=== PATIENT | female | born 1960 | race Caucasian/White ===

== ENCOUNTER 2017-07-16 21:04 | Emergency (ER) | payer MEDICARE, OTHER ==
[~2017-07-16] VITALS: Ht 167.6 cm; Wt 108.9 kg
[~2017-07-16 21:04] MED LIST: ACET325 PO; ALBU90OI6 INH; ALBU90OI61 INH; AMLO5 PO; ASPI325; ASPI325 PO; ASPI325EC PO; ASPI81EC; ASPI81EC PO; ATOR10; ATOR80 PO; Amlodipine Besyl5 MG PO; BP MEDICATION; BUME1 PO; Bactrim Ds Tab1 EACH PO; CHOL10002 PO; CITA20 PO; CLOP75; CLOP75 PO; DIPASPER; DIPH50 PO; DULO30; DULO60; Diflucan100 MG PO; FAMO20 PO; FISH1000 PO; FLUSAL115; FLUT110OIA IH; FLUT44OIA IH; FURO40 PO; HYDACE10B PO; HYDCHLSU PO; HYDHCL25 PO; HYDMOR2 PO; IBUP600 PO; IMDUR PO; ISOMON60ER PO; K-Dur20 MEQ PO; LEVO750 PO; LISI5 PO; METF500 PO; NEBI5 PO; NITR.3TP TOP; NITR.4SL SL; NITR.6SL SL; NYST100000 PO; Norco 10-325 T1 EACH PO; Norco 7.5-3251 EACH PO; OLME20; OMEG1CAP30 PO; ONDA4ODT MM; OXYB5 PO; PANT40 PO; PANTOPRAZOLE; PARO20 PO; PAROXETINE; POTA10T PO; POTCHL10ER PO; PRAM.125 PO; PRAM.5 PO; PRAV20 PO; PREG75 PO; PROP60 PO; RAMI2.5 PO; RANI150 PO; ROSU10TA; RXHYDMOR2 PO; TRAM50 PO; TRIAMCINOLONE; VARE1 PO; WARF1 PO; WARF4 PO; WARF6; WARF6 PO; WARF7.5 PO; WARFARIN; [UNRECOGNIZED DRUG - REMARK]
[2018-05-23] MEDS ORDERED: Ultram50 MG PO (12:45)
== END 2017-07-16 23:03 | disposition home or self-care (01) ==
LOC: ER 21:04
DX: S61.431A Puncture wound without foreign body of right hand, initial encounter (principal); Z23 Encounter for immunization; E11.9 Type 2 diabetes mellitus without complications; I10 Essential (primary) hypertension; Z88.8 Allergy status to other drugs, medicaments and biological substances; Z79.899 Other long term (current) drug therapy; Z79.84 Long term (current) use of oral hypoglycemic drugs; Z79.82 Long term (current) use of aspirin; Z95.5 Presence of coronary angioplasty implant and graft; Z87.891 Personal history of nicotine dependence; Z86.73 Personal history of transient ischemic attack (TIA), and cerebral infarction without residual deficits; W26.8XXA Contact with other sharp object(s), not elsewhere classified, initial encounter
CPT/HCPCS: 73130; 90471; 90714; 99283

== ENCOUNTER → 2018-02-14 | Outpatient (CLI) | payer MEDICARE, OTHER | END | disposition home or self-care (01) | LOC: LAB SHORT 13:28 → LAB 13:28 | DX: B35.1 Tinea unguium (principal); L60.2 Onychogryphosis | CPT/HCPCS: 88305; 88312 ==

== ENCOUNTER → 2018-10-29 | Outpatient (CLI) | payer MEDICARE, OTHER ==
[~2018-10-29] MED LIST changes: +Ultram50 MG PO
[2018-10-29 12:16] LABS: BASOPHILS ABSOLUTE AUTO 0.06 K/mm3 (0.00-0.23); BASOPHILS PERCENT AUTO 1 % (0-2); EOSINOPHILS PERCENT AUTO 2 % (0-6); Hematocrit 39.8 % (33.0-51.0); Hemoglobin 12.9 g/dL (11.5-16.0); IMMATURE GRAN ABSOLUTE AUTO 0.03 K/mm3 (0.00-0.10); IMMATURE GRAN PERCENT AUTO 1 % (0-1); LYMPHOCYTES ABSOLUTE AUTO 1.65 K/mm3 (0.84-5.20); LYMPHOCYTES PERCENT AUTO 25 % (21-46); MONOCYTES ABSOLUTE AUTO 0.28 K/mm3 (0.16-1.47); MONOCYTES PERCENT AUTO 4 % (4-13); Mean Corpuscular HGB Conc 32.4 g/dL (31.5-36.5); Mean Corpuscular Volume 86 fL (80-100); Mean Platelet Volume 10.9 fL (9.1-12.4); NEUTROPHILS PERCENT AUTO 68 % (41-73); Platelet Count 325 K/mm3 (150-400); RDW Coefficient Variation 14.5 % (11.7-14.2); Red Blood Cell Count 4.61 M/mm3 (3.80-5.20); White Blood Cell Count 6.52 K/mm3 (4.00-11.30)
[2018-10-29 12:38] LABS: Alanine Aminotransfer (ALT/SGP 32 U/L (12-78); Albumin, Blood 3.5 g/dL (3.4-5.0); Albumin/Globulin Ratio 0.9 (0.8-1.8); Alk Phos 118 U/L (50-136); Anion Gap 6 mmol/L (6-16); Aspartate Aminotrans (AST/SGOT 14 U/L (12-37); Bilirubin, Total 0.5 mg/dL (0.1-1.0); Blood Urea Nitrogen 8 mg/dL (8-24); Bun/Creatinine Ratio 13.4 (12.0-20.0); CHOL/HDL RATIO 4.9; CO2, Blood 30 mmol/L (21-32); Chloride, Blood 99 mmol/L (98-108); Cholesterol 165 mg/dL (50-200); Globulin, Blood 3.7 g/dL (2.2-4.0); Glomerular Filtration Rate >60 (60-); Glucose, Blood 243 mg/dL (70-99); HDL Cholesterol 34 mg/dL (>39); LDL/HDL RATIO 2.8; Low Density Lipoprotein Chol 96 mg/dL (0-110); Potassium, Blood 2.9 mmol/L (3.5-5.5); Sodium, Blood 135 mmol/L (136-145); Total Protein, Blood 7.2 g/dL (6.4-8.2); Triglycerides 173 mg/dL (30-160); Very Low Density Lipoprot Chol 34 mg/dL (6-32)
== END | disposition home or self-care (01) ==
LOC: LAB 11:31 → LAB SHORT 11:31
PROVIDERS: Physician Assistant
DX: E11.9 Type 2 diabetes mellitus without complications (principal); I10 Essential (primary) hypertension
CPT/HCPCS: 80053; 80061; 83036; 85025

== ENCOUNTER 2019-07-30 07:36 | Day surgery (SDC) | payer MEDICARE, OTHER ==
[~2019-07-30] VITALS: Ht 170.2 cm; Wt 113.0 kg
[~2019-07-30 07:36] MED LIST changes: +DULO30 PO; +INSDET100 SC; +Isosorbide Mono60 MG PO; +LIRA0.6P SC; +METFORMIN HCL1000 MG PO; +Mirapex0.25 MG PO; +Prinivil10 MG PO; +TORSE20 PO; +Zantac150 MG PO
--- NOTE | 2019-07-30 08:34 | NUR ---
History, Chart, Medications and Allergies reviewed before start of procedure.Patient confirms NPO status and agrees with scheduled surgery.LUNGS WITH FAINT WHEEZES, CLEARS WITH COUGH. PT REPORTS NORMAL.
--- NOTE | 2019-07-30 09:03 | NUR ---
07/30/19 0903 Khadar Oh History, Chart, Medications and Allergies reviewed before start of procedure.MONITOR INTACT WITH CONTINUOUS PULSE OXIMETRY AND INTERMITTENT BP.3-LEAD EKG REVIEWED WITH PHYSICIAN PRIOR TO START OF PROCEDURE.O2 VIA N/C INTACT THROUGHOUT SEDATION/PROCEDURE. Patient confirms NPO status and agrees with scheduled surgery.PATIENT DETERMINED TO BE ASA APPROPRIATE FOR PROPOFOL SEDATION PRIOR TO START OF PROCEDURE BY DR. AGUILAR.
== END 2019-07-30 09:45 | disposition home or self-care (01) ==
LOC: ORSCMMR 07:36 → ORD 08:30 → ORSCMMR 09:45
PROVIDERS: Internal Medicine Gastroenterology
PROC: 0DB58ZX Excision of Esophagus, Via Natural or Artificial Opening Endoscopic, Diagnostic (ICD-10-PCS; principal; 2019-07-30 08:30)
PROC: 0DB68ZX Excision of Stomach, Via Natural or Artificial Opening Endoscopic, Diagnostic (ICD-10-PCS; principal; 2019-07-30 08:30)
PROC: 0DB48ZX Excision of Esophagogastric Junction, Via Natural or Artificial Opening Endoscopic, Diagnostic (ICD-10-PCS; principal; 2019-07-30 08:30)
DX: K21.0 Gastro-esophageal reflux disease with esophagitis (principal); K29.50 Unspecified chronic gastritis without bleeding; K44.9 Diaphragmatic hernia without obstruction or gangrene; E11.9 Type 2 diabetes mellitus without complications; I25.2 Old myocardial infarction; I25.10 Atherosclerotic heart disease of native coronary artery without angina pectoris; I69.354 Hemiplegia and hemiparesis following cerebral infarction affecting left non-dominant side; I10 Essential (primary) hypertension; F32.9 Major depressive disorder, single episode, unspecified; Z79.01 Long term (current) use of anticoagulants; Z79.82 Long term (current) use of aspirin; Z79.4 Long term (current) use of insulin; Z79.899 Other long term (current) drug therapy; F17.290 Nicotine dependence, other tobacco product, uncomplicated
CPT/HCPCS: 82947; 88305; 88342; J2250; J2704; J7120

== ENCOUNTER → 2019-11-07 | Outpatient (CLI) | payer MEDICARE, OTHER ==
[2019-11-07 12:25] LABS: BASOPHILS ABSOLUTE AUTO 0.08 K/mm3 (0.00-0.23); BASOPHILS PERCENT AUTO 1 % (0-2); EOSINOPHILS ABSOLUTE AUTO 0.14 K/mm3 (0.00-0.68); EOSINOPHILS PERCENT AUTO 2 % (0-6); Hematocrit 42.6 % (33.0-51.0); Hemoglobin 13.3 g/dL (11.5-16.0); IMMATURE GRAN ABSOLUTE AUTO 0.03 K/mm3 (0.00-0.10); IMMATURE GRAN PERCENT AUTO 1 % (0-1); LYMPHOCYTES ABSOLUTE AUTO 1.67 K/mm3 (0.84-5.20); LYMPHOCYTES PERCENT AUTO 26 % (21-46); MONOCYTES ABSOLUTE AUTO 0.27 K/mm3 (0.16-1.47); MONOCYTES PERCENT AUTO 4 % (4-13); Mean Corpuscular HGB 27.7 pg (26.0-34.0); Mean Corpuscular HGB Conc 31.2 g/dL (31.5-36.5); Mean Corpuscular Volume 89 fL (80-100); Mean Platelet Volume 10.5 fL (9.1-12.4); NEUTROPHILS ABSOLUTE AUTO 4.31 K/mm3 (1.96-9.15); NEUTROPHILS PERCENT AUTO 66 % (41-73); Platelet Count 343 K/mm3 (150-400); RDW Coefficient Variation 13.9 % (11.7-14.2); Red Blood Cell Count 4.81 M/mm3 (3.80-5.20)
[2019-11-07 12:44] LABS: Alanine Aminotransfer (ALT/SGP 33 U/L (12-78); Albumin, Blood 3.2 g/dL (3.4-5.0); Albumin/Globulin Ratio 0.9 (0.8-1.8); Alk Phos 123 U/L (50-136); Anion Gap 6 mmol/L (6-16); Aspartate Aminotrans (AST/SGOT 14 U/L (12-37); Bilirubin, Total 0.5 mg/dL (0.1-1.0); Blood Urea Nitrogen 9 mg/dL (8-24); Bun/Creatinine Ratio 14.7 (12.0-20.0); CHOL/HDL RATIO 5.7; CO2, Blood 26 mmol/L (21-32); Calcium, Blood 8.9 mg/dL (8.5-10.1); Chloride, Blood 103 mmol/L (98-108); Cholesterol 188 mg/dL (50-200); Creatinine, Blood 0.61 mg/dL (0.40-1.00); Globulin, Blood 3.6 g/dL (2.2-4.0); Glomerular Filtration Rate >60 (60-); Glucose, Blood 313 mg/dL (70-99); HDL Cholesterol 33 mg/dL (>39); LDL/HDL RATIO 3.7; Low Density Lipoprotein Chol 121 mg/dL (0-110); Potassium, Blood 3.8 mmol/L (3.5-5.5); Sodium, Blood 135 mmol/L (136-145); Total Protein, Blood 6.8 g/dL (6.4-8.2); Triglycerides 171 mg/dL (30-160); Very Low Density Lipoprot Chol 34 mg/dL (6-32)
== END | disposition home or self-care (01) ==
LOC: LAB SHORT 08:24 → LAB 08:24
PROVIDERS: Physician Assistant
DX: E11.40 Type 2 diabetes mellitus with diabetic neuropathy, unspecified (principal); E78.5 Hyperlipidemia, unspecified
CPT/HCPCS: 80053; 80061; 83036; 85025

== ENCOUNTER 2020-01-09 14:41 | Emergency (ER) | payer MEDICARE, OTHER ==
[~2020-01-09] VITALS: Ht 170.2 cm; Wt 122.5 kg
[2020-01-09] MEDS ORDERED: OXYC5 PO (17:05)
== END 2020-01-09 17:40 | disposition home or self-care (01) ==
LOC: ER 14:41
DX: S46.912A Strain of unspecified muscle, fascia and tendon at shoulder and upper arm level, left arm, initial encounter (principal); Z79.82 Long term (current) use of aspirin; Z79.4 Long term (current) use of insulin; E11.9 Type 2 diabetes mellitus without complications; Z86.73 Personal history of transient ischemic attack (TIA), and cerebral infarction without residual deficits; F17.200 Nicotine dependence, unspecified, uncomplicated; Z88.8 Allergy status to other drugs, medicaments and biological substances; X58.XXXA Exposure to other specified factors, initial encounter
CPT/HCPCS: 73060; 93971; 99284-25

== ENCOUNTER 2020-08-14 21:20 | Inpatient (IN) | payer MEDICARE, OTHER ==
[~2020-08-14] VITALS: Ht 170.2 cm; Wt 122.5 kg
[~2020-08-14 21:20] MED LIST changes: +BASAGLAR K100 UNIT/1 SC; +GLUCOPHAGE1000 M2 PO; +Klor-Con 1010 MEQ PO; -LIRA0.6P SC; +MAALOX PLUS PO; -METFORMIN HCL1000 MG PO; +OXYC5 PO; +TUMS500 MG PO; +VICTOZA 2-0.6 MG/0.1 PO
[2020-08-14 21:45] LABS: BASOPHILS ABSOLUTE AUTO 0.07 K/mm3 (0.00-0.23); BASOPHILS PERCENT AUTO 1 % (0-2); EOSINOPHILS ABSOLUTE AUTO 0.11 K/mm3 (0.00-0.68); EOSINOPHILS PERCENT AUTO 2 % (0-6); Hematocrit 44.6 % (33.0-51.0); Hemoglobin 15.1 g/dL (11.5-16.0); IMMATURE GRAN ABSOLUTE AUTO 0.02 K/mm3 (0.00-0.10); IMMATURE GRAN PERCENT AUTO 0 % (0-1); LYMPHOCYTES ABSOLUTE AUTO 1.74 K/mm3 (0.84-5.20); LYMPHOCYTES PERCENT AUTO 26 % (21-46); MONOCYTES PERCENT AUTO 5 % (4-13); Mean Corpuscular HGB 28.9 pg (26.0-34.0); Mean Corpuscular HGB Conc 33.9 g/dL (31.5-36.5); Mean Corpuscular Volume 85 fL (80-100); Mean Platelet Volume 10.6 fL (9.1-12.4); NEUTROPHILS ABSOLUTE AUTO 4.42 K/mm3 (1.96-9.15); NEUTROPHILS PERCENT AUTO 66 % (41-73); Platelet Count 353 K/mm3 (150-400); RDW Coefficient Variation 13.5 % (11.7-14.2); Red Blood Cell Count 5.22 M/mm3 (3.80-5.20); White Blood Cell Count 6.66 K/mm3 (4.00-11.30)
[2020-08-14 22:05] LABS: CPK Creatine Kinase 64 U/L (26-193); Creatine Kinase MB 2.8 ng/mL (0.0-3.6); Creatine Kinase MB Index 4.4 (0.0-4.0); International Normalized Ratio 0.94; Magnesium, Blood 2.3 mg/dL (1.6-2.4); Prothrombin Time Results 10.1 Sec (9.7-11.5); Troponin I <0.015 ng/mL (0.000-0.040)
[2020-08-14 22:10] LABS: Alanine Aminotransfer (ALT/SGP 41 U/L (12-78); Albumin, Blood 3.5 g/dL (3.4-5.0); Albumin/Globulin Ratio 0.8 (0.8-1.8); Alk Phos 160 U/L (50-136); Anion Gap 7 mmol/L (6-16); Aspartate Aminotrans (AST/SGOT 19 U/L (12-37); Bilirubin, Total 0.4 mg/dL (0.1-1.0); Blood Urea Nitrogen 10 mg/dL (8-24); CO2, Blood 27 mmol/L (21-32); Calcium, Blood 9.8 mg/dL (8.5-10.1); Chloride, Blood 94 mmol/L (98-108); Creatinine, Blood 0.63 mg/dL (0.40-1.00); Globulin, Blood 4.3 g/dL (2.2-4.0); Glomerular Filtration Rate >60 (60-); Glucose, Blood 634 mg/dL (70-99); Sodium, Blood 128 mmol/L (136-145); Total Protein, Blood 7.8 g/dL (6.4-8.2)
[2020-08-14 22:39] LABS: Source, Urine Clean Catch
[2020-08-14 22:41] LABS: Bilirubin, Urine Neg (Neg); Blood, Urine 1+ (Neg); Glucose Qualitative, Urine 4+ (Neg); Ketones, Urine Neg (Neg); Leukocyte Esterase, Urine Neg (Neg); Nitrite, Urine Pos (Neg); Protein, Urine Neg (Neg); Urobilinogen, Urine NORM (Normal)
[2020-08-14 23:05] LABS: Color, Urine Yellow (P-Yellow)
[2020-08-14 23:08] LABS: Appearance, Urine Hazy (Clear); White Blood Cells, Urine 0-2 /hpf (0-5)
[2020-08-14 23:09] LABS: Bacteria Many /hpf; Squamous Epithelial Cells Few /hpf (Few); Yeast/Fungi Urine Few /hpf
[2020-08-14 23:19] LABS: Influenza A, PCR NEGATIVE (NEGATIVE); Influenza B, PCR NEGATIVE (NEGATIVE); Resp Syncytial Virus, PCR NEGATIVE (NEGATIVE); SARS-Cov-2 (COVID-19) PCR, MMC NEGATIVE (NEGATIVE)
--- NOTE | 2020-08-15 04:37 | NUR ---
SUMMER CHILD CAREGIVER SUMMARY PT ADMITTED FROM AT 0120 THIS SHIFT. RECEIVED REPORT FROM STEPHAN LAO. PT A&OX4, ABLE TO MAKE NEEDS KNOWN, PLEASANT AND COOPERATIVE TO CARE. L SIDED WEAKNESS, FLACCID LUE NOTED. L FACIAL DROOP NOTED. GOOD ROM NOTED TO RUE AND RLE. VSS. NO C/O PAIN OR ANY DISCOMFORT. DENIES CP, SOB OR N&V. PT ON TELE NSR 70's. PT ABLE TO TOLERATE MEDS WITH THIN FLUIDS. PT CURRENTLY RESTING IN BED AT THIS TIME. LOZADA PATENT AND DRAINING W/O ISSUES. BED AT LOWEST POSITION. CALL LIGHT WITHIN REACH.
[2020-08-15 10:05] LABS: BASOPHILS ABSOLUTE AUTO 0.06 K/mm3 (0.00-0.23); BASOPHILS PERCENT AUTO 1 % (0-2); EOSINOPHILS ABSOLUTE AUTO 0.13 K/mm3 (0.00-0.68); EOSINOPHILS PERCENT AUTO 2 % (0-6); Hematocrit 40.5 % (33.0-51.0); Hemoglobin 13.9 g/dL (11.5-16.0); IMMATURE GRAN ABSOLUTE AUTO 0.02 K/mm3 (0.00-0.10); IMMATURE GRAN PERCENT AUTO 0 % (0-1); LYMPHOCYTES ABSOLUTE AUTO 1.36 K/mm3 (0.84-5.20); LYMPHOCYTES PERCENT AUTO 23 % (21-46); MONOCYTES ABSOLUTE AUTO 0.29 K/mm3 (0.16-1.47); MONOCYTES PERCENT AUTO 5 % (4-13); Mean Corpuscular HGB 29.6 pg (26.0-34.0); Mean Corpuscular HGB Conc 34.3 g/dL (31.5-36.5); Mean Corpuscular Volume 86 fL (80-100); Mean Platelet Volume 10.3 fL (9.1-12.4); NEUTROPHILS ABSOLUTE AUTO 4.03 K/mm3 (1.96-9.15); NEUTROPHILS PERCENT AUTO 69 % (41-73); Platelet Count 264 K/mm3 (150-400); RDW Coefficient Variation 13.5 % (11.7-14.2); RDW Standard Deviation 42.1 fL (35.1-46.3); Red Blood Cell Count 4.69 M/mm3 (3.80-5.20); White Blood Cell Count 5.89 K/mm3 (4.00-11.30)
[2020-08-15 10:23] LABS: Alanine Aminotransfer (ALT/SGP 33 U/L (12-78); Albumin, Blood 2.8 g/dL (3.4-5.0); Albumin/Globulin Ratio 0.8 (0.8-1.8); Alk Phos 125 U/L (50-136); Anion Gap 5 mmol/L (6-16); Aspartate Aminotrans (AST/SGOT 18 U/L (12-37); Bilirubin, Total 0.5 mg/dL (0.1-1.0); Blood Urea Nitrogen 9 mg/dL (8-24); CO2, Blood 27 mmol/L (21-32); Calcium, Blood 8.4 mg/dL (8.5-10.1); Chloride, Blood 102 mmol/L (98-108); Globulin, Blood 3.5 g/dL (2.2-4.0); Glomerular Filtration Rate >60 (60-); Glucose, Blood 369 mg/dL (70-99); Potassium, Blood 3.5 mmol/L (3.5-5.5); Sodium, Blood 134 mmol/L (136-145); Total Protein, Blood 6.3 g/dL (6.4-8.2)
--- NOTE | 2020-08-15 12:52 | NUR ---
ECHOCARDIOGRAM COMPLETED
--- NOTE | 2020-08-15 16:44 | NUR ---
SHIFT SUMMARY PT A&O AND ABLE TO MAKE NEEDS KNOWN. PT HAS LEFT SIDED WEAKNESS AND FACIAL DROOP. PT DENIED P/N/V DURING SHIFT. SHE WORKED WITH PHYSICAL THERAPHY THIS THIS SHIFT AND TOLLEREATED IT WELL. PT UNABLE TO RECEIVE MRI DUE TO UNKNOWN LOACATION OF STENT CARD. ONE STENT WAS COMPLETED IN 2004 AT [facility], BELIEVES DR. LEE PLACED CARDIAC STENS AROUND 2009. HE WILL LOOK FOR IT AT HOME AND CALL IF HE FINDS IT. NO ORDER WAS FOUND FOR KIERRA, DISSCUSED WITH AND GM REMOVED PER REQUEST. PT REQUESTED ORDERED NICOTINE PATCH. PT CURENTLY IN ROOM WITH COMPUTER AIDED DESIGN DRAFTER, CALL LIGHT W/IN REACH.
--- NOTE | 2020-08-16 07:09 | NUR ---
SHIFT SUMMARY: VU IS A&OX4. VSS, NO ACUTE EVENTS OVERNIGHT. MEPILEX TO BILATERAL HEELS IN PLACE. SHE IS INCONTINENT, ATTENDS IN PLACE. SHE IS TOLERATING PO INTAKE WELL. SHE USES THE CALL LIGHT APPROPRIATELY. SHE MOVES HERSELF IN BED WELL. SHE IS LYING IN BED WITH THE CALL LIGHT IN REACH. WILL REPORT TO DAY SHIFT RN.
--- NOTE | 2020-08-16 16:40 | NUR ---
SHIFT SUMMARY PATIENT DENIES PAIN, NAUSEA, AND SHORTNESS OF BREATH. PATIENT ABLE TO SIT ON SIDE OF BED WITH ASSISTANCE. TWO ASSIST UP TO CHAIR STAND PIVOT. LEFT SIDE WEAK WITH GROSS MOTOR CONTROL ONLY. PATIENT VERY EMOTIONAL TODAY. SEVERAL EPISODES OF CRYING RELATED TO HER CONDITION AND RECENT LOSS OF HER SON. VISITED IN AFTERNOON.
--- NOTE | 2020-08-17 04:47 | NUR ---
SHIFT SUMMARY PT APPEARED TO SLEEP MUCH OF THE NIGHT. DENIED ANY PAIN. CONTINUED TO HAVE WEAKNESS TO LEFT SIDE OF BODY, HOWEVER WEAKNESS HAS BEEN IMPROVING. PT ABLE TO LIFT HER LEFT ARM UP WHICH SHE WAS UNABLE TO DO PRIOR. SHE INITIALLY STATED THAT SHE COULD NOT MOVE HER HAND. THIS RN ASSISTED HER FINGERS OPEN FROM A CLOSED FIST. AFTER HAND WAS OPEN PT WAS ABLE TO LIGHTLY SQUEEZE MY HAND. VERY SLIGHT LEFT FACIAL DROOP. VITAL SIGNS HAVE BEEN STABLE. PT HAD AN UNEVENTFUL NIGHT. WILL CONTINUE TO MONITOR.
--- NOTE | 2020-08-17 16:49 | NUR ---
SHIFT SUMMARY PATIENT DENIES PAIN, NAUSEA, AND SHORTNESS OF BREATH. PATIENT UP 2 PERSON STAND PIVOT TO CHAIR W/GAIT BELT. WORKED WITH PT AND OT TODAY. EATING AND DRINKING WELL. POSSIBLE SNF DC TOMORROW.
--- NOTE | 2020-08-18 06:41 | NUR ---
SHIFT SUMMARY: 64 Y/O MORBID OBESE FEMALE RESTED COMFORTABLY ALL SHIFT; DENIES PAIN OR NAUSEA; PT HAS GROSS MOTOR MOVEMENT LEFT UPPER AND LOWER EXTREMITIES WITH MUCH EFFORT NOTED BY PATIENT; PT HAS NO ISSUES SWALLOWING FLUIDS, FOOD OR PILLS; ALERT AND ORIENTED X 4; HAPPY AND COOPERATIVE; BED LOW POSITION WITH CALL LIGHT AT SIDE.
[2020-08-18] MEDS ORDERED: ASPI81CH PO (10:59)
[2020-08-18 11:34] LABS: Influenza A, PCR NEGATIVE (NEGATIVE); Influenza B, PCR NEGATIVE (NEGATIVE); Resp Syncytial Virus, PCR NEGATIVE (NEGATIVE); SARS-Cov-2 (COVID-19) PCR, MMC NEGATIVE (NEGATIVE)
--- NOTE | 2020-08-18 13:13 | NUR ---
GAVE REPORT TO STEPHAN ROMERO AT [facility]
[2021-01-11] MEDS ORDERED: DULOXETINE HCL60 M1 PO (12:40)
[2021-01-11] MEDS ORDERED: CYMBALTA30 M2 PO (12:40)
[2021-01-11] MEDS ORDERED: PREGABALIN75 MG PO (12:42)
[2021-01-11] MEDS ORDERED: KLOR-CON 1010 ME3 PO (12:42)
== END 2020-08-18 14:14 | DRG 65 ==
LOC: ER 21:20 → MEDS 08-15 01:08
PROVIDERS: Emergency Medicine; Hospitalist; ADMIT Internal Medicine
DX: I63.9 Cerebral infarction, unspecified (principal); I69.354 Hemiplegia and hemiparesis following cerebral infarction affecting left non-dominant side; I10 Essential (primary) hypertension; F17.210 Nicotine dependence, cigarettes, uncomplicated; I25.10 Atherosclerotic heart disease of native coronary artery without angina pectoris; E11.9 Type 2 diabetes mellitus without complications; Z79.4 Long term (current) use of insulin; K21.9 Gastro-esophageal reflux disease without esophagitis; F32.9 Major depressive disorder, single episode, unspecified; I25.2 Old myocardial infarction; R29.810 Facial weakness; R09.02 Hypoxemia; E11.65 Type 2 diabetes mellitus with hyperglycemia; Z91.14 Patient's other noncompliance with medication regimen; E86.0 Dehydration; R21 Rash and other nonspecific skin eruption; H54.7 Unspecified visual loss
CPT/HCPCS: 0241U; 36415; 51702; 70450; 71045; 80053; 81001; 82550; 82553; 82947; 83735; 84484; 85025; 85610; 85730; 87077; 87086; 87186; 92610; 93005; 93010; 93306; 93880; 96365-59; 96372; 96376; 97112; 97116; 97162; 97165; 97530; 99285-25; A9270; G0378; J0696; J1650; J1815; J7030; P9612

== ENCOUNTER 2020-11-07 19:07 | Inpatient (IN) | payer MEDICARE, OTHER ==
[~2020-11-07] VITALS: Ht 170.2 cm; Wt 106.2 kg
[~2020-11-07 19:07] MED LIST changes: +ASPI81CH PO
[2020-11-07 19:46] LABS: BASOPHILS ABSOLUTE AUTO 0.09 K/mm3 (0.00-0.23); BASOPHILS PERCENT AUTO 1 % (0-2); EOSINOPHILS ABSOLUTE AUTO 0.17 K/mm3 (0.00-0.68); EOSINOPHILS PERCENT AUTO 2 % (0-6); Hematocrit 44.9 % (33.0-51.0); Hemoglobin 14.9 g/dL (11.5-16.0); IMMATURE GRAN ABSOLUTE AUTO 0.07 K/mm3 (0.00-0.10); IMMATURE GRAN PERCENT AUTO 1 % (0-1); LYMPHOCYTES ABSOLUTE AUTO 2.32 K/mm3 (0.84-5.20); LYMPHOCYTES PERCENT AUTO 24 % (21-46); MONOCYTES ABSOLUTE AUTO 0.37 K/mm3 (0.16-1.47); MONOCYTES PERCENT AUTO 4 % (4-13); Mean Corpuscular HGB 29.3 pg (26.0-34.0); Mean Corpuscular HGB Conc 33.2 g/dL (31.5-36.5); Mean Corpuscular Volume 88 fL (80-100); Mean Platelet Volume 10.1 fL (9.1-12.4); NEUTROPHILS ABSOLUTE AUTO 6.57 K/mm3 (1.96-9.15); NEUTROPHILS PERCENT AUTO 69 % (41-73); Platelet Count 389 K/mm3 (150-400); RDW Coefficient Variation 12.8 % (11.7-14.2); RDW Standard Deviation 41.8 fL (35.1-46.3); Red Blood Cell Count 5.09 M/mm3 (3.80-5.20); White Blood Cell Count 9.59 K/mm3 (4.00-11.30)
[2020-11-07 20:04] LABS: Alanine Aminotransfer (ALT/SGP 27 U/L (12-78); Albumin, Blood 3.4 g/dL (3.4-5.0); Albumin/Globulin Ratio 0.7 (0.8-1.8); Alk Phos 129 U/L (50-136); Anion Gap 5 mmol/L (6-16); Aspartate Aminotrans (AST/SGOT 19 U/L (12-37); Bilirubin, Total 0.4 mg/dL (0.1-1.0); Blood Urea Nitrogen 11 mg/dL (8-24); Bun/Creatinine Ratio 13.6 (12.0-20.0); CO2, Blood 30 mmol/L (21-32); Chloride, Blood 101 mmol/L (98-108); Creatinine, Blood 0.81 mg/dL (0.40-1.00); Globulin, Blood 4.8 g/dL (2.2-4.0); Glomerular Filtration Rate >60 (60-); Glucose, Blood 282 mg/dL (70-99); Potassium, Blood 3.9 mmol/L (3.5-5.5); Sodium, Blood 136 mmol/L (136-145); Total Protein, Blood 8.2 g/dL (6.4-8.2)
[2020-11-07 20:54] LABS: Troponin I <0.015 ng/mL (0.000-0.040)
[2020-11-07 20:56] LABS: Source, Urine Catheter
[2020-11-07 21:00] LABS: Bilirubin, Urine Neg (Neg); Blood, Urine Neg (Neg); Glucose Qualitative, Urine Neg (Neg); Ketones, Urine Neg (Neg); Leukocyte Esterase, Urine 1+ (Neg); Nitrite, Urine Pos (Neg); Protein, Urine Neg (Neg); Urobilinogen, Urine NORM (Normal)
[2020-11-07 21:03] LABS: Appearance, Urine Hazy (Clear); Color, Urine Pale Yellow (P-Yellow)
[2020-11-07 21:09] LABS: U Amphetamine Screen DETECTED; U Barbituate Screen Not Detected; U Benzodiazapine Screen Not Detected; U Buprenorphine Screen Not Detected; U Cannabinoids Screen DETECTED; U Cocaine Screen Not Detected; U Methadone Screen Not Detected; U Methamphetamine Screen DETECTED; U Opiates Screen Not Detected; U Oxycodone Screen Not Detected; U Phencyclidine Screen Not Detected; U Propoxyphene Screen Not Detected
[2020-11-07 21:12] LABS: Red Blood Cells, Urine Not Seen /hpf (0-2); Yeast/Fungi Urine Mod /hpf
[2020-11-07 21:13] LABS: Bacteria Many /hpf; Squamous Epithelial Cells Mod /hpf (Few)
[2020-11-08 01:24] LABS: BASOPHILS ABSOLUTE AUTO 0.09 K/mm3 (0.00-0.23); BASOPHILS PERCENT AUTO 1 % (0-2); EOSINOPHILS ABSOLUTE AUTO 0.15 K/mm3 (0.00-0.68); EOSINOPHILS PERCENT AUTO 2 % (0-6); Hematocrit 38.8 % (33.0-51.0); Hemoglobin 12.8 g/dL (11.5-16.0); IMMATURE GRAN ABSOLUTE AUTO 0.05 K/mm3 (0.00-0.10); IMMATURE GRAN PERCENT AUTO 1 % (0-1); LYMPHOCYTES ABSOLUTE AUTO 2.33 K/mm3 (0.84-5.20); LYMPHOCYTES PERCENT AUTO 26 % (21-46); MONOCYTES ABSOLUTE AUTO 0.41 K/mm3 (0.16-1.47); MONOCYTES PERCENT AUTO 5 % (4-13); Mean Corpuscular HGB 29.2 pg (26.0-34.0); Mean Corpuscular Volume 88 fL (80-100); Mean Platelet Volume 9.9 fL (9.1-12.4); NEUTROPHILS ABSOLUTE AUTO 6.05 K/mm3 (1.96-9.15); NEUTROPHILS PERCENT AUTO 67 % (41-73); Platelet Count 334 K/mm3 (150-400); RDW Standard Deviation 42.2 fL (35.1-46.3); Red Blood Cell Count 4.39 M/mm3 (3.80-5.20); White Blood Cell Count 9.08 K/mm3 (4.00-11.30)
[2020-11-08 01:53] LABS: Anion Gap 7 mmol/L (6-16); Blood Urea Nitrogen 12 mg/dL (8-24); Bun/Creatinine Ratio 14.7 (12.0-20.0); CO2, Blood 29 mmol/L (21-32); Calcium, Blood 8.2 mg/dL (8.5-10.1); Chloride, Blood 102 mmol/L (98-108); Creatinine, Blood 0.81 mg/dL (0.40-1.00); Glomerular Filtration Rate >60 (60-); Glucose, Blood 250 mg/dL (70-99); Potassium, Blood 3.7 mmol/L (3.5-5.5); Sodium, Blood 138 mmol/L (136-145)
--- NOTE | 2020-11-08 05:35 | NUR ---
SHIFT SUMMARY- PT. NEW ADMIT FROM ED WITH CVA. A&O WITH L SIDED DEFICIT, SLURRED SPEECH, AND L FACIAL DROOP. HAD NO COMPLAINTS OF PAIN OR DISCOMFORT DURING THE NIGHT. PT. WEAK AND HAS NOT BEEN UNABLE TO GET OOB. PT. REPOSITIONED IN BED FOR COMFORT AND PRN, PULL ON. SCHEDULED MEDS TAKEN WHOLE W/O DIFFICULTY, VSS. CALL LIGHT WITHIN REACH AND SIDE RAILS UPX2. WILL CONT TO MONITOR.
--- NOTE | 2020-11-08 16:24 | NUR ---
SHIFT SUMMARY PATIENT MEDICATED X1 FOR PAIN. DENIES NAUSEA AND SHORTNESS OF BREATH. PT EVAL COMPLETED. PATIENT ABLE TO SIT ON SIDE OF BED WITH ASSISTANCE. UNABLE TO STAND AT THIS TIME. PT RECOMMENED SNF. EATING AND DRINKING WELL. STRUGGLES TO FOLLOW ADA DIET. EMOTIONAL/CRYING AT TIMES. PLEASANT AND COPPERATIVE WITH CARE.
--- NOTE | 2020-11-09 05:28 | NUR ---
SHIFT SUMMARY- NO ACUTE EVENTS OVERNIGHT. PT. APPEARED TO HAVE RESTED COMFORTABLY T/O THE NIGHT, NO APPARENT DISTRESS NOTED. NO COMPLAINTS DURING NIGHT, VSS. CALL LIGHT WITHIN REACH AND SIDE RAILS UPX2. WILL CONT TO MONITOR.
--- NOTE | 2020-11-09 15:51 | NUR ---
DISCHARGE DISCHARGE MEDICATIONS AND INSTRUCTIONS EXPLAINED TO PATIENT. PATIENT STATED UNDERSTANDING. DISCHARGE PACKET SENT HOME WITH PATIENT. BELONGINGS WITH PATIENT. PATIENT TRANSPORTED VIA WHEELCHAIR TO PRIVATE VEHICLE. JARED MIDDLEWARE ENGINEER CASI TO CALL PATIENT AT HOME TO SCHEDULE FOLLOW UP. IV REMOVED WITHOUT DIFFICULTY.
[2021-01-11] MEDS ORDERED: CYMBALTA30 M2 PO (12:40)
[2021-01-11] MEDS ORDERED: DULOXETINE HCL60 M1 PO (12:40)
[2021-01-11] MEDS ORDERED: KLOR-CON 1010 ME3 PO (12:42)
[2021-01-11] MEDS ORDERED: PREGABALIN75 MG PO (12:42)
[2021-01-25] MEDS ORDERED: VITAMIN D325 MC3 PO (21:24)
== END 2020-11-09 15:41 | disposition home health service (06) | DRG 57 ==
LOC: ER 19:07 → MEDS 19:08 → ENPENDDIS 11-09 12:56 → MEDS 11-09 15:41
PROVIDERS: Emergency Medicine; ADMIT Family Medicine
DX: I69.354 Hemiplegia and hemiparesis following cerebral infarction affecting left non-dominant side (principal); E87.2 Acidosis; F32.9 Major depressive disorder, single episode, unspecified; I25.10 Atherosclerotic heart disease of native coronary artery without angina pectoris; K21.9 Gastro-esophageal reflux disease without esophagitis; E11.9 Type 2 diabetes mellitus without complications; R29.810 Facial weakness; F15.19 Other stimulant abuse with unspecified stimulant-induced disorder; R82.71 Bacteriuria; F17.210 Nicotine dependence, cigarettes, uncomplicated; I25.2 Old myocardial infarction; Z95.5 Presence of coronary angioplasty implant and graft; Z98.891 History of uterine scar from previous surgery; Z98.890 Other specified postprocedural states; Z88.8 Allergy status to other drugs, medicaments and biological substances; Z79.02 Long term (current) use of antithrombotics/antiplatelets; Z79.4 Long term (current) use of insulin; Z79.82 Long term (current) use of aspirin; Z79.899 Other long term (current) drug therapy
CPT/HCPCS: 36415; 51701; 70450; 71045; 80048; 80053; 81001; 82947; 83605; 84145; 84484; 85025; 87040; 87077; 87086; 87186; 92610; 93005; 93010; 96372; 97110; 97112; 97162; 97166; 97530; 99285-25; A9270; G0378; J1650; J7030

== ENCOUNTER 2021-01-25 20:45 | Observation (INO) | payer MEDICARE, OTHER ==
[~2021-01-25] VITALS: Ht 170.2 cm; Wt 103.1 kg
[~2021-01-25 20:45] MED LIST changes: +CYMBALTA30 M2 PO; +DULOXETINE HCL60 M1 PO; -GLUCOPHAGE1000 M2 PO; +KLOR-CON 1010 ME3 PO; +LIPITOR80 MG PO; +LISI20 PO; +METFORMIN HCL1000 MG PO; -Mirapex0.25 MG PO; +PREGABALIN75 MG PO; -Prinivil10 MG PO
[2021-01-25] MEDS ORDERED: VITAMIN D31000 UNI1 PO (21:24)
[2021-01-25 21:26] LABS: BASOPHILS ABSOLUTE AUTO 0.09 K/mm3 (0.00-0.23); BASOPHILS PERCENT AUTO 1 % (0-2); EOSINOPHILS ABSOLUTE AUTO 0.08 K/mm3 (0.00-0.68); EOSINOPHILS PERCENT AUTO 1 % (0-6); Hematocrit 44.5 % (33.0-51.0); Hemoglobin 14.9 g/dL (11.5-16.0); IMMATURE GRAN ABSOLUTE AUTO 0.06 K/mm3 (0.00-0.10); IMMATURE GRAN PERCENT AUTO 1 % (0-1); LYMPHOCYTES ABSOLUTE AUTO 1.53 K/mm3 (0.84-5.20); LYMPHOCYTES PERCENT AUTO 17 % (21-46); MONOCYTES ABSOLUTE AUTO 0.35 K/mm3 (0.16-1.47); MONOCYTES PERCENT AUTO 4 % (4-13); Mean Corpuscular HGB Conc 33.5 g/dL (31.5-36.5); Mean Corpuscular Volume 87 fL (80-100); Mean Platelet Volume 10.1 fL (9.1-12.4); NEUTROPHILS ABSOLUTE AUTO 6.86 K/mm3 (1.96-9.15); NEUTROPHILS PERCENT AUTO 76 % (41-73); Platelet Count 369 K/mm3 (150-400); RDW Coefficient Variation 13.5 % (11.7-14.2); RDW Standard Deviation 42.6 fL (35.1-46.3); Red Blood Cell Count 5.13 M/mm3 (3.80-5.20); White Blood Cell Count 8.97 K/mm3 (4.00-11.30)
[2021-01-25 21:46] LABS: Alanine Aminotransfer (ALT/SGP 36 U/L (12-78); Albumin, Blood 3.5 g/dL (3.4-5.0); Albumin/Globulin Ratio 0.8 (0.8-1.8); Alk Phos 118 U/L (50-136); Anion Gap 8 mmol/L (6-16); Aspartate Aminotrans (AST/SGOT 23 U/L (12-37); Bilirubin, Total 0.2 mg/dL (0.1-1.0); Blood Urea Nitrogen 10 mg/dL (8-24); Bun/Creatinine Ratio 16.8 (12.0-20.0); CO2, Blood 24 mmol/L (21-32); Calcium, Blood 9.3 mg/dL (8.5-10.1); Chloride, Blood 103 mmol/L (98-108); Globulin, Blood 4.4 g/dL (2.2-4.0); Glomerular Filtration Rate >60 (60-); Glucose, Blood 328 mg/dL (70-99); Potassium, Blood 4.8 mmol/L (3.5-5.5); Sodium, Blood 135 mmol/L (136-145); Total Protein, Blood 7.9 g/dL (6.4-8.2)
[2021-01-25 22:45] LABS: International Normalized Ratio 0.95; Prothrombin Time Results 10.3 Sec (9.7-11.5)
[2021-01-25 23:21] LABS: U Amphetamine Screen Not Detected; U Barbituate Screen Not Detected; U Benzodiazapine Screen Not Detected; U Buprenorphine Screen Not Detected; U Cannabinoids Screen DETECTED; U Cocaine Screen Not Detected; U Methadone Screen Not Detected; U Methamphetamine Screen DETECTED; U Opiates Screen Not Detected; U Oxycodone Screen Not Detected; U Phencyclidine Screen Not Detected; U Propoxyphene Screen Not Detected
[2021-01-25 23:34] LABS: CHOL/HDL RATIO 6.8; Cholesterol 272 mg/dL (50-200); HDL Cholesterol 40 mg/dL (>39); Low Density Lipoprotein Chol 199 mg/dL (0-110); Triglycerides 163 mg/dL (30-160); Very Low Density Lipoprot Chol 32 mg/dL (6-32)
--- NOTE | 2021-01-26 07:14 | NUR ---
SHIFT SUMMARY ASSUMED CARE OF PT AT 1900. PT IS A/OX4. HEART SOUNDS REGULAR, LUNG SOUNDS HAVE CRACKLES AT THE BASES. PT WAS CONTIENT T/O THE NIGHT. PT HAS L SIDED FACIAL DROOP AND L SIDED WEAKNESS, PT STATES SHE HAS HAD WEAKNESS BEFORE BUT THIS IS WORSE. PT L ARM IS CONTRACTERED AND THE L LEG IS ALMOST FLACCID BUT WILL TWITCH WHEN TOUCHED. CALL LIGHT IN REACH, BED IN LOWEST POSTION, BED ALARM ON.
[2021-01-26] MEDS ORDERED: ALBU90OI INH (11:01)
--- NOTE | 2021-01-26 13:36 | NUR ---
PT PROVIDED DISCHARGE INFO REGARDING FOLLOW UP PLANS, REASONS TO RETURN TO THE HOSPITAL, AND MEDICATION INFORMATION. PT VERBALIZED UNDERSTANDING. NO SIGNS OF ACUTE DISTRESS. TO LEAVE VIA PERSONAL VEHICLE WITH SPOUSE TO PROVIDE RIDE.
[2021-01-27] MEDS ORDERED: CEPH500 PO (22:04)
== END 2021-01-26 15:00 | disposition home health service (06) ==
LOC: ER 20:45 → PCU 20:46
PROVIDERS: Student in an Organized Health Care Education/Training Program; ADMIT Family Medicine
DX: I63.9 Cerebral infarction, unspecified (principal); G81.94 Hemiplegia, unspecified affecting left nondominant side; I69.344 Monoplegia of lower limb following cerebral infarction affecting left non-dominant side; R29.810 Facial weakness; F15.10 Other stimulant abuse, uncomplicated; I25.2 Old myocardial infarction; F17.210 Nicotine dependence, cigarettes, uncomplicated; E11.9 Type 2 diabetes mellitus without complications; E87.1 Hypo-osmolality and hyponatremia; I10 Essential (primary) hypertension; I25.10 Atherosclerotic heart disease of native coronary artery without angina pectoris; Z95.5 Presence of coronary angioplasty implant and graft; Z88.8 Allergy status to other drugs, medicaments and biological substances; Z79.82 Long term (current) use of aspirin; Z79.4 Long term (current) use of insulin; E78.5 Hyperlipidemia, unspecified
CPT/HCPCS: 36415; 70450; 70496; 70498; 80053; 80061; 82947; 85025; 85610; 85730; 93005; 93010; 97110; 97112; 97162; 97166; 97530; A9270; J1650; J1815; Q9967

== ENCOUNTER 2021-01-27 17:52 | Emergency (ER) | payer MEDICARE, OTHER ==
[~2021-01-27] VITALS: Ht 170.2 cm; Wt 113.4 kg
[~2021-01-27 17:52] MED LIST changes: +ALBU90OI INH; +VITAMIN D31000 UNI1 PO
[2021-01-27 18:18] LABS: Source, Urine Clean Catch
[2021-01-27 18:21] LABS: Appearance, Urine Turbid (Clear); Bilirubin, Urine Neg (Neg); Blood, Urine 1+ (Neg); Color, Urine Yellow (P-Yellow); Glucose Qualitative, Urine 4+ (Neg); Ketones, Urine 1+ (Neg); Leukocyte Esterase, Urine 2+ (Neg); Nitrite, Urine Pos (Neg); Protein, Urine 2+ (Neg); Specific Gravity, Urine 1.025 (1.003-1.022); Urobilinogen, Urine 2+ (Normal)
[2021-01-27 18:45] LABS: Bacteria Many /hpf; Red Blood Cells, Urine 0-2 /hpf (0-2); Squamous Epithelial Cells Many /hpf (Few); Yeast/Fungi Urine Many /hpf
[2021-01-27] MEDS ORDERED: CEPH500 PO (22:04)
== END 2021-01-27 22:25 | disposition home or self-care (01) ==
LOC: ER 17:52
PROVIDERS: Physician Assistant
DX: N39.0 Urinary tract infection, site not specified (principal); Z79.02 Long term (current) use of antithrombotics/antiplatelets; Z79.82 Long term (current) use of aspirin; Z79.899 Other long term (current) drug therapy; Z88.8 Allergy status to other drugs, medicaments and biological substances
CPT/HCPCS: 81001; 99283; A9270

== ENCOUNTER 2021-02-02 03:34 | Emergency (ER) | payer MEDICARE, OTHER ==
[~2021-02-02] VITALS: Ht 170.2 cm; Wt 102.1 kg
[~2021-02-02 03:34] MED LIST changes: +CEPH500 PO
[2021-02-02] MEDS ORDERED: ONDA4ODT MM (05:50)
== END 2021-02-02 06:25 | disposition home or self-care (01) ==
LOC: ER 03:34
DX: R11.2 Nausea with vomiting, unspecified (principal); E11.9 Type 2 diabetes mellitus without complications; I50.9 Heart failure, unspecified; F17.200 Nicotine dependence, unspecified, uncomplicated; Z88.8 Allergy status to other drugs, medicaments and biological substances; Z79.82 Long term (current) use of aspirin; Z79.02 Long term (current) use of antithrombotics/antiplatelets; Z79.899 Other long term (current) drug therapy; Z79.4 Long term (current) use of insulin
CPT/HCPCS: 99283; A9270

== ENCOUNTER 2021-02-06 16:04 | Emergency (ER) | payer MEDICARE, OTHER ==
[~2021-02-06] VITALS: Ht 170.2 cm; Wt 117.9 kg
[2021-02-06] MEDS ORDERED: Voltaren100 GM TOP (18:13)
== END 2021-02-06 18:43 | disposition home or self-care (01) ==
LOC: ER 16:04
DX: M17.11 Unilateral primary osteoarthritis, right knee (principal); E11.9 Type 2 diabetes mellitus without complications; I25.2 Old myocardial infarction; Z86.79 Personal history of other diseases of the circulatory system; Z98.62 Peripheral vascular angioplasty status; Z88.8 Allergy status to other drugs, medicaments and biological substances
CPT/HCPCS: 73562-RT; 96372; 99283-25; J1885

== ENCOUNTER 2021-03-10 17:55 | Emergency (ER) | payer MEDICARE, OTHER ==
[~2021-03-10] VITALS: Ht 170.2 cm; Wt 117.9 kg
[~2021-03-10 17:55] MED LIST changes: +Voltaren100 GM TOP
[2021-03-10 18:41] LABS: BASOPHILS PERCENT AUTO 1 % (0-2); EOSINOPHILS ABSOLUTE AUTO 0.12 K/mm3 (0.00-0.68); EOSINOPHILS PERCENT AUTO 1 % (0-6); Hematocrit 41.3 % (33.0-51.0); Hemoglobin 13.8 g/dL (11.5-16.0); IMMATURE GRAN ABSOLUTE AUTO 0.06 K/mm3 (0.00-0.10); IMMATURE GRAN PERCENT AUTO 1 % (0-1); LYMPHOCYTES PERCENT AUTO 21 % (21-46); MONOCYTES ABSOLUTE AUTO 0.39 K/mm3 (0.16-1.47); MONOCYTES PERCENT AUTO 5 % (4-13); Mean Corpuscular HGB 29.6 pg (26.0-34.0); Mean Corpuscular HGB Conc 33.4 g/dL (31.5-36.5); Mean Corpuscular Volume 89 fL (80-100); Mean Platelet Volume 9.8 fL (9.1-12.4); NEUTROPHILS ABSOLUTE AUTO 6.08 K/mm3 (1.96-9.15); NEUTROPHILS PERCENT AUTO 71 % (41-73); Platelet Count 426 K/mm3 (150-400); RDW Coefficient Variation 14.1 % (11.7-14.2); RDW Standard Deviation 45.6 fL (35.1-46.3); Red Blood Cell Count 4.66 M/mm3 (3.80-5.20); White Blood Cell Count 8.55 K/mm3 (4.00-11.30)
[2021-03-10 19:37] LABS: SARS-Cov-2 (COVID-19) PCR, MMC NEGATIVE (NEGATIVE)
[2021-03-10 20:06] LABS: Alanine Aminotransfer (ALT/SGP 31 U/L (12-78); Albumin, Blood 3.4 g/dL (3.4-5.0); Albumin/Globulin Ratio 0.8 (0.8-1.8); Alk Phos 123 U/L (50-136); Anion Gap 7 mmol/L (6-16); Aspartate Aminotrans (AST/SGOT 11 U/L (12-37); Bilirubin, Total 0.3 mg/dL (0.1-1.0); Blood Urea Nitrogen 7 mg/dL (8-24); Bun/Creatinine Ratio 10.7 (12.0-20.0); CO2, Blood 26 mmol/L (21-32); Calcium, Blood 9.2 mg/dL (8.5-10.1); Chloride, Blood 103 mmol/L (98-108); Creatinine, Blood 0.66 mg/dL (0.40-1.00); Globulin, Blood 4.5 g/dL (2.2-4.0); Glomerular Filtration Rate >60 (60-); Glucose, Blood 130 mg/dL (70-99); Potassium, Blood 4.1 mmol/L (3.5-5.5); Sodium, Blood 136 mmol/L (136-145); Total Protein, Blood 7.9 g/dL (6.4-8.2)
[2021-03-10 20:58] LABS: Source, Urine Voided
[2021-03-10 21:03] LABS: Bilirubin, Urine Neg (Neg); Blood, Urine Neg (Neg); Glucose Qualitative, Urine Neg (Neg); Ketones, Urine Neg (Neg); Leukocyte Esterase, Urine Neg (Neg); Nitrite, Urine Neg (Neg); Protein, Urine Neg (Neg); Specific Gravity, Urine 1.005 (1.003-1.022); Urobilinogen, Urine NORM (Normal)
[2021-03-10 21:09] LABS: Appearance, Urine Clear (Clear); Color, Urine Pale Yellow (P-Yellow)
[2021-03-10 21:11] LABS: Ethanol (Alcohol), Blood, Med <3 mg/dL
[2021-03-10 21:19] LABS: U Amphetamine Screen DETECTED; U Barbituate Screen Not Detected; U Benzodiazapine Screen Not Detected; U Buprenorphine Screen Not Detected; U Cannabinoids Screen Not Detected; U Cocaine Screen Not Detected; U Methadone Screen Not Detected; U Methamphetamine Screen DETECTED; U Opiates Screen Not Detected; U Oxycodone Screen Not Detected; U Phencyclidine Screen Not Detected; U Propoxyphene Screen Not Detected
== END 2021-03-10 22:31 | disposition home or self-care (01) ==
LOC: ER 17:55
PROVIDERS: Emergency Medicine
DX: R41.0 Disorientation, unspecified (principal); E11.9 Type 2 diabetes mellitus without complications; I25.2 Old myocardial infarction; I50.9 Heart failure, unspecified; F17.200 Nicotine dependence, unspecified, uncomplicated; Z20.822 Contact with and (suspected) exposure to COVID-19; Z88.8 Allergy status to other drugs, medicaments and biological substances; Z79.899 Other long term (current) drug therapy; Z79.82 Long term (current) use of aspirin; Z86.73 Personal history of transient ischemic attack (TIA), and cerebral infarction without residual deficits; Z79.02 Long term (current) use of antithrombotics/antiplatelets
CPT/HCPCS: 36415; 70450; 80053; 81003; 83690; 85025; 93005; 93010; 99285-25; G0480; U0004

== ENCOUNTER 2021-05-04 15:47 | Emergency (ER) | payer MEDICARE, OTHER ==
[~2021-05-04] VITALS: Ht 167.6 cm; Wt 113.4 kg
[2021-05-04 16:15] LABS: BASOPHILS ABSOLUTE AUTO 0.07 K/mm3 (0.00-0.23); BASOPHILS PERCENT AUTO 1 % (0-2); EOSINOPHILS ABSOLUTE AUTO 0.05 K/mm3 (0.00-0.68); EOSINOPHILS PERCENT AUTO 0 % (0-6); Hemoglobin 16.2 g/dL (11.5-16.0); IMMATURE GRAN ABSOLUTE AUTO 0.05 K/mm3 (0.00-0.10); IMMATURE GRAN PERCENT AUTO 0 % (0-1); LYMPHOCYTES ABSOLUTE AUTO 1.11 K/mm3 (0.84-5.20); LYMPHOCYTES PERCENT AUTO 8 % (21-46); MONOCYTES ABSOLUTE AUTO 0.33 K/mm3 (0.16-1.47); MONOCYTES PERCENT AUTO 2 % (4-13); Mean Corpuscular HGB 29.6 pg (26.0-34.0); Mean Corpuscular HGB Conc 33.1 g/dL (31.5-36.5); Mean Corpuscular Volume 90 fL (80-100); Mean Platelet Volume 9.8 fL (9.1-12.4); NEUTROPHILS ABSOLUTE AUTO 12.32 K/mm3 (1.96-9.15); NEUTROPHILS PERCENT AUTO 88 % (41-73); Platelet Count 444 K/mm3 (150-400); RDW Coefficient Variation 13.4 % (11.7-14.2); RDW Standard Deviation 44.4 fL (35.1-46.3); Red Blood Cell Count 5.47 M/mm3 (3.80-5.20); White Blood Cell Count 13.93 K/mm3 (4.00-11.30)
[2021-05-04 16:37] LABS: Alanine Aminotransfer (ALT/SGP 31 U/L (12-78); Albumin, Blood 3.6 g/dL (3.4-5.0); Albumin/Globulin Ratio 0.8 (0.8-1.8); Alk Phos 138 U/L (50-136); Anion Gap 7 mmol/L (6-16); Aspartate Aminotrans (AST/SGOT 18 U/L (12-37); Bilirubin, Total 0.6 mg/dL (0.1-1.0); Blood Urea Nitrogen 14 mg/dL (8-24); Bun/Creatinine Ratio 19.8 (12.0-20.0); CO2, Blood 29 mmol/L (21-32); Calcium, Blood 10.1 mg/dL (8.5-10.1); Chloride, Blood 103 mmol/L (98-108); Creatinine, Blood 0.71 mg/dL (0.40-1.00); Globulin, Blood 4.8 g/dL (2.2-4.0); Glomerular Filtration Rate >60 (60-); Glucose, Blood 170 mg/dL (70-99); Potassium, Blood 3.9 mmol/L (3.5-5.5); Sodium, Blood 139 mmol/L (136-145); Total Protein, Blood 8.4 g/dL (6.4-8.2); Troponin I <0.015 ng/mL (0.000-0.040)
[2021-05-04] MEDS ORDERED: PROM25 PO (16:59)
== END 2021-05-04 17:55 | disposition home or self-care (01) ==
LOC: ER 15:47
PROVIDERS: Emergency Medicine
DX: A08.4 Viral intestinal infection, unspecified (principal); E11.9 Type 2 diabetes mellitus without complications; I50.9 Heart failure, unspecified; I25.2 Old myocardial infarction; F17.210 Nicotine dependence, cigarettes, uncomplicated; Z86.73 Personal history of transient ischemic attack (TIA), and cerebral infarction without residual deficits
CPT/HCPCS: 36415; 80053; 83690; 84484; 85025; 93005; 93010; 96374; 99284-25; J2405; J7120

== ENCOUNTER 2021-08-02 21:59 | Inpatient (IN) | payer MEDICARE, OTHER ==
[~2021-08-02] VITALS: Ht 167.6 cm; Wt 101.7 kg
[~2021-08-02 21:59] MED LIST changes: +PROM25 PO
[2021-08-02] MEDS ORDERED: METFORMIN HYDROCHLOR (22:49)
[2021-08-02] MEDS ORDERED: FAMO20 PO (22:49)
[2021-08-02] MEDS ORDERED: BASAGLAR K100 UNIT/8 SC (22:51)
[2021-08-02] MEDS ORDERED: CYMBALTA30 M2 PO (22:52)
[2021-08-02] MEDS ORDERED: VICTOZA 3-0.6 MG/0.2 SC (22:53)
[2021-08-02] MEDS ORDERED: LIPITOR80 MG PO (22:54)
[2021-08-02 23:10] LABS: Source, Urine Straight Cath
[2021-08-02 23:13] LABS: Bilirubin, Urine Neg (Neg); Blood, Urine Neg (Neg); Glucose Qualitative, Urine Neg (Neg); Ketones, Urine Neg (Neg); Leukocyte Esterase, Urine Neg (Neg); Nitrite, Urine Pos (Neg); Protein, Urine Neg (Neg); Urobilinogen, Urine NORM (Normal)
[2021-08-02 23:21] LABS: BASOPHILS ABSOLUTE AUTO 0.09 K/mm3 (0.00-0.23); BASOPHILS PERCENT AUTO 1 % (0-2); EOSINOPHILS ABSOLUTE AUTO 0.16 K/mm3 (0.00-0.68); EOSINOPHILS PERCENT AUTO 1 % (0-6); Hematocrit 43.6 % (33.0-51.0); Hemoglobin 14.3 g/dL (11.5-16.0); IMMATURE GRAN ABSOLUTE AUTO 0.06 K/mm3 (0.00-0.10); IMMATURE GRAN PERCENT AUTO 1 % (0-1); LYMPHOCYTES PERCENT AUTO 22 % (21-46); MONOCYTES ABSOLUTE AUTO 0.62 K/mm3 (0.16-1.47); MONOCYTES PERCENT AUTO 6 % (4-13); Mean Corpuscular HGB 29.1 pg (26.0-34.0); Mean Corpuscular HGB Conc 32.8 g/dL (31.5-36.5); Mean Corpuscular Volume 89 fL (80-100); Mean Platelet Volume 10.3 fL (9.1-12.4); NEUTROPHILS ABSOLUTE AUTO 7.92 K/mm3 (1.96-9.15); NEUTROPHILS PERCENT AUTO 70 % (41-73); Platelet Count 405 K/mm3 (150-400); RDW Coefficient Variation 13.8 % (11.7-14.2); RDW Standard Deviation 44.9 fL (35.1-46.3); Red Blood Cell Count 4.92 M/mm3 (3.80-5.20); White Blood Cell Count 11.35 K/mm3 (4.00-11.30)
[2021-08-02 23:24] LABS: Appearance, Urine Hazy (Clear); Color, Urine Pale Yellow (P-Yellow)
[2021-08-02 23:25] LABS: Bacteria Many /hpf; Red Blood Cells, Urine Not Seen /hpf (0-2); Squamous Epithelial Cells Few /hpf (Few); White Blood Cells, Urine Rare /hpf (0-5)
[2021-08-02 23:37] LABS: Albumin, Blood 3.1 g/dL (3.4-5.0); Albumin/Globulin Ratio 0.9 (0.8-1.8); Bilirubin, Total 0.4 mg/dL (0.1-1.0); Bun/Creatinine Ratio 17.7 (12.0-20.0); Calcium, Blood 9.8 mg/dL (8.5-10.1); Creatinine, Blood 1.24 mg/dL (0.40-1.00); Globulin, Blood 3.6 g/dL (2.2-4.0); Potassium, Blood 4.1 mmol/L (3.5-5.5); Total Protein, Blood 6.7 g/dL (6.4-8.2)
[2021-08-02 23:53] LABS: International Normalized Ratio 1.01; Prothrombin Time Results 10.6 Sec (9.7-11.5)
[2021-08-03 00:04] LABS: Influenza A, PCR NEGATIVE (NEGATIVE); Influenza B, PCR NEGATIVE (NEGATIVE); Resp Syncytial Virus, PCR NEGATIVE (NEGATIVE); SARS-Cov-2 (COVID-19) PCR, MMC NEGATIVE (NEGATIVE)
[2021-08-03] MEDS ORDERED: CYMBALTA30 M2 PO (01:47)
[2021-08-03] MEDS ORDERED: METF500 PO (01:49)
[2021-08-03] MEDS ORDERED: PROM25 PO (01:50)
[2021-08-03] MEDS ORDERED: AMLODIPINE BESYL5 MG PO (01:52)
[2021-08-03 04:57] LABS: BASOPHILS ABSOLUTE AUTO 0.09 K/mm3 (0.00-0.23); BASOPHILS PERCENT AUTO 1 % (0-2); EOSINOPHILS ABSOLUTE AUTO 0.19 K/mm3 (0.00-0.68); EOSINOPHILS PERCENT AUTO 2 % (0-6); Hematocrit 39.7 % (33.0-51.0); Hemoglobin 12.9 g/dL (11.5-16.0); IMMATURE GRAN ABSOLUTE AUTO 0.03 K/mm3 (0.00-0.10); IMMATURE GRAN PERCENT AUTO 0 % (0-1); LYMPHOCYTES ABSOLUTE AUTO 2.56 K/mm3 (0.84-5.20); LYMPHOCYTES PERCENT AUTO 29 % (21-46); MONOCYTES ABSOLUTE AUTO 0.41 K/mm3 (0.16-1.47); MONOCYTES PERCENT AUTO 5 % (4-13); Mean Corpuscular HGB 28.9 pg (26.0-34.0); Mean Corpuscular HGB Conc 32.5 g/dL (31.5-36.5); Mean Corpuscular Volume 89 fL (80-100); Mean Platelet Volume 10.2 fL (9.1-12.4); NEUTROPHILS PERCENT AUTO 64 % (41-73); Platelet Count 369 K/mm3 (150-400); RDW Coefficient Variation 13.8 % (11.7-14.2); RDW Standard Deviation 44.6 fL (35.1-46.3); Red Blood Cell Count 4.46 M/mm3 (3.80-5.20); White Blood Cell Count 8.98 K/mm3 (4.00-11.30)
[2021-08-03 05:10] LABS: Bun/Creatinine Ratio 19.6 (12.0-20.0); Calcium, Blood 8.4 mg/dL (8.5-10.1); Creatinine, Blood 1.12 mg/dL (0.40-1.00); Potassium, Blood 3.9 mmol/L (3.5-5.5); Thyroid Stimulating Hormone 0.653 uIU/mL (0.360-4.800)
--- NOTE | 2021-08-03 12:27 | NUR ---
Spiritual Care visit. Pt. was sitting up in bed and finishing lunch. Pt. welcomed my visit. Pt. shared some detail about her condition and admission. Pt. was unsettled by the relationship of a daughter living in her home. Spouse is supportive, but seems to live in another location. Listened empathetically. Provided prayer. Pt. displayed evidence of openness and trust and verbalized her desire for me to check on her. Will monitor, and will return to help identify situation at home and the source of her stated spiritual arnold.
--- NOTE | 2021-08-03 17:28 | NUR ---
SHIFT SUMMARY; ASSUMED CARE AT 0700. SLEEPING BUT EASILY ARROUSABLE TO VERBAL STIMULI. A/A/OX4. HX OF CVA IN 2004 WITH LEFT SIDE WEAKNESS. REPOSITIONS SELF IN BED WITH ASSISTANCE. VSS, STATUS CHANGED TO MEDICAL TODAY. BED BATH COMPLETE TODAY WITH GOWN, LINEN CHANGE, ORAL CARE AND CATH CARE. LOZADA DRAINING CLEAR URINE TO GRAVITY BAG. EATING INDEPENDANTLY DURING SHIFT. PLEASANT AND COOPERATIVE WITH CARE. WILL CONTINUE TO MONITOR AND TREAT UNTIL CHANGE OF SHIFT.
--- NOTE | 2021-08-04 04:32 | NUR ---
SHIFT SUMMARY A/OX4, 2 MAX ASSIST. HX CVA, L. SIDED DEFICITS. LOZADA PATENT AND DRAINING TO GRAVITY. TELE SR IN THE 60'S. SOFT BP'S NOTED. DENIES PAIN OR SOB. NO ACUTE CHANGES AT THIS TIME. BED IN LOWEST POSITION WITH CALL LIGHT IN REACH. WILL CONTINUE TO MONITOR AND REPORT TO ONCOMING RN.
--- NOTE | 2021-08-04 13:04 | NUR ---
DISCHARGE SUMMARY PATIENT IS ALERT AND ORIENTED X4. PATIENT HAS BEEN PLEASENT AND COOPERATIVE WITH CARE. PATIENT HAS HAD NO ACUTE EVENTS THIS SHIFT. VITAL SIGNS REVIEWED. CHARLEEN RN REMOVED IJ. THIS RN REMOVED PATIENTS IV'S WNL. THIS RN READ DISCHARGE INSTRUCTIONS TO PATIENT AND PATIENT AGREED UNDERSTANDING TO DISCHARGE INSTRUCTIONS. PATIENT WAS DISCHARGED BY LARISSA ASHLEY TO PATIENTS HUSBANDS VEHICLE.
== END 2021-08-04 13:55 | disposition home or self-care (01) | DRG 682 ==
LOC: ER 21:59 → ICUW 08-03 02:55 → MEDS 08-03 18:50 → ENPENDDIS 08-04 13:31 → MEDS 08-04 13:55
PROVIDERS: Emergency Medicine; Student in an Organized Health Care Education/Training Program; ADMIT Internal Medicine
PROC: 02HV33Z Insertion of Infusion Device into Superior Vena Cava, Percutaneous Approach (ICD-10-PCS; principal; 2021-08-03)
PROC: 3E043XZ Introduction of Vasopressor into Central Vein, Percutaneous Approach (ICD-10-PCS; 2021-08-03)
DX: N17.9 Acute kidney failure, unspecified (principal); R57.1 Hypovolemic shock; I69.354 Hemiplegia and hemiparesis following cerebral infarction affecting left non-dominant side; E11.43 Type 2 diabetes mellitus with diabetic autonomic (poly)neuropathy; F32.A Depression, unspecified; Z20.822 Contact with and (suspected) exposure to COVID-19; F12.90 Cannabis use, unspecified, uncomplicated; F15.10 Other stimulant abuse, uncomplicated; K21.9 Gastro-esophageal reflux disease without esophagitis; R11.2 Nausea with vomiting, unspecified; I50.9 Heart failure, unspecified; F17.210 Nicotine dependence, cigarettes, uncomplicated; K31.84 Gastroparesis; Z53.29 Procedure and treatment not carried out because of patient's decision for other reasons; I25.2 Old myocardial infarction; Z98.890 Other specified postprocedural states; Z95.5 Presence of coronary angioplasty implant and graft; Z98.891 History of uterine scar from previous surgery; Z88.8 Allergy status to other drugs, medicaments and biological substances; Z79.02 Long term (current) use of antithrombotics/antiplatelets; Z79.84 Long term (current) use of oral hypoglycemic drugs; Z79.899 Other long term (current) drug therapy
CPT/HCPCS: 0241U; 36415; 36556; 51702; 70450; 71045; 80048; 80053; 81001; 82947; 83605; 83690; 84145; 84443; 84484; 85025; 85610; 85730; 87040; 87086; 93005; 93010; 96365; 96375; 99285-25; A9270; C1751; J0696; J2405; J2543; J3370; J7030; J7050; J7060

== ENCOUNTER 2022-04-20 15:40 | Emergency (ER) | payer MEDICARE, OTHER ==
[~2022-04-20] VITALS: Ht 170.2 cm; Wt 115.2 kg
[~2022-04-20 15:40] MED LIST changes: +AMLODIPINE BESYL5 MG PO; +BASAGLAR K100 UNIT/8 SC; +METFORMIN HYDROCHLOR; +VICTOZA 3-0.6 MG/0.2 SC
== END 2022-04-20 17:50 | disposition home or self-care (01) ==
LOC: ER 15:40
DX: E11.51 Type 2 diabetes mellitus with diabetic peripheral angiopathy without gangrene (principal); I25.2 Old myocardial infarction; I50.9 Heart failure, unspecified; F17.200 Nicotine dependence, unspecified, uncomplicated; Z79.899 Other long term (current) drug therapy; Z79.84 Long term (current) use of oral hypoglycemic drugs; Z88.8 Allergy status to other drugs, medicaments and biological substances
CPT/HCPCS: 93925

== ENCOUNTER → 2023-01-11 | Outpatient (CLI) | payer MEDICARE, OTHER ==
[~2023-01-11] MED LIST changes: +CEFPODOXIME PR100 MG PO; +VARENICLINE TART1 M2 PO
[2023-01-11 19:46] LABS: BASOPHILS ABSOLUTE AUTO 0.07 K/mm3 (0.00-0.23); BASOPHILS PERCENT AUTO 1 % (0-2); EOSINOPHILS ABSOLUTE AUTO 0.15 K/mm3 (0.00-0.68); EOSINOPHILS PERCENT AUTO 2 % (0-6); Hematocrit 46.9 % (33.0-51.0); Hemoglobin 15.4 g/dL (11.5-16.0); IMMATURE GRAN ABSOLUTE AUTO 0.02 K/mm3 (0.00-0.10); IMMATURE GRAN PERCENT AUTO 0 % (0-1); LYMPHOCYTES PERCENT AUTO 23 % (21-46); MONOCYTES ABSOLUTE AUTO 0.48 K/mm3 (0.16-1.47); MONOCYTES PERCENT AUTO 5 % (4-13); Mean Corpuscular HGB 29.2 pg (26.0-34.0); Mean Corpuscular HGB Conc 32.8 g/dL (31.5-36.5); Mean Corpuscular Volume 89 fL (80-100); Mean Platelet Volume 10.5 fL (9.1-12.4); NEUTROPHILS ABSOLUTE AUTO 6.19 K/mm3 (1.96-9.15); NEUTROPHILS PERCENT AUTO 69 % (41-73); Platelet Count 464 K/mm3 (150-400); RDW Coefficient Variation 13.3 % (11.7-14.2); RDW Standard Deviation 43.5 fL (35.1-46.3); Red Blood Cell Count 5.28 M/mm3 (3.80-5.20); White Blood Cell Count 9.01 K/mm3 (4.00-11.30)
[2023-01-11 20:28] LABS: Alanine Aminotransfer (ALT/SGP 28 U/L (12-78); Albumin, Blood 3.3 g/dL (3.4-5.0); Albumin/Globulin Ratio 0.8 (0.8-1.8); Alk Phos 149 U/L (50-136); Anion Gap 8 mmol/L (6-16); Aspartate Aminotrans (AST/SGOT 22 U/L (12-37); Bilirubin, Total 0.6 mg/dL (0.1-1.0); Blood Urea Nitrogen 14 mg/dL (8-24); CHOL/HDL RATIO 4.3; CO2, Blood 25 mmol/L (21-32); Calcium, Blood 9.2 mg/dL (8.5-10.1); Chloride, Blood 103 mmol/L (98-108); Cholesterol 169 mg/dL (50-200); Globulin, Blood 4.4 g/dL (2.2-4.0); Glucose, Blood 242 mg/dL (70-99); HDL Cholesterol 39 mg/dL (>39); LDL/HDL RATIO 2.7; Low Density Lipoprotein Chol 104 mg/dL (0-110); Potassium, Blood 4.2 mmol/L (3.5-5.5); Sodium, Blood 136 mmol/L (136-145); Total Protein, Blood 7.7 g/dL (6.4-8.2); Triglycerides 128 mg/dL (30-160); Very Low Density Lipoprot Chol 25 mg/dL (6-32)
[2023-01-11 20:35] LABS: Bun/Creatinine Ratio 24.4 (12.0-20.0); Creatinine, Blood 0.57 mg/dL (0.40-1.00); Glomerular Filtration Rate 104 (60-)
[2023-01-13 11:13] LABS: HBSAG SCREEN Negative (Negative); HCV AB Non Reactive (Non Reactive); HEP B CORE AB, TOT Positive (Negative)
== END ==
LOC: LAB 18:40 → LAB SHORT 18:40
PROVIDERS: Family Medicine
DX: Z11.59 Encounter for screening for other viral diseases (principal); Z79.899 Other long term (current) drug therapy
CPT/HCPCS: 80053; 80061; 82306; 84443; 85025; 86704; 86708; 86803; 87340

== ENCOUNTER 2023-02-20 16:41 | Inpatient (IN) | payer MEDICARE, OTHER ==
[~2023-02-20] VITALS: Ht 170.2 cm; Wt 115.8 kg
[~2023-02-20 16:41] MED LIST changes: +DULO60 PO; +GLUCOPHAGE1000 M1 PO; -KLOR-CON 1010 ME3 PO; +TORS10 PO; -TORSE20 PO
[2023-02-20 17:46] LABS: Albumin, Blood 3.8 g/dL (3.4-5.0); Albumin/Globulin Ratio 0.8 (0.8-1.8); Bilirubin, Total 0.7 mg/dL (0.1-1.0); Bun/Creatinine Ratio 21.2 (12.0-20.0); Calcium, Blood 9.9 mg/dL (8.5-10.1); Creatinine, Blood 0.76 mg/dL (0.40-1.00); Globulin, Blood 4.5 g/dL (2.2-4.0); Potassium, Blood 4.1 mmol/L (3.5-5.5); Total Protein, Blood 8.3 g/dL (6.4-8.2)
[2023-02-20 17:59] LABS: BASOPHILS ABSOLUTE AUTO 0.11 K/mm3 (0.00-0.23); BASOPHILS PERCENT AUTO 1 % (0-2); EOSINOPHILS ABSOLUTE AUTO 0.16 K/mm3 (0.00-0.68); EOSINOPHILS PERCENT AUTO 2 % (0-6); Hematocrit 49.2 % (33.0-51.0); Hemoglobin 16.4 g/dL (11.5-16.0); IMMATURE GRAN ABSOLUTE AUTO 0.04 K/mm3 (0.00-0.10); IMMATURE GRAN PERCENT AUTO 0 % (0-1); LYMPHOCYTES ABSOLUTE AUTO 1.68 K/mm3 (0.84-5.20); LYMPHOCYTES PERCENT AUTO 16 % (21-46); MONOCYTES ABSOLUTE AUTO 0.47 K/mm3 (0.16-1.47); MONOCYTES PERCENT AUTO 5 % (4-13); Mean Corpuscular HGB 29.3 pg (26.0-34.0); Mean Corpuscular HGB Conc 33.3 g/dL (31.5-36.5); Mean Corpuscular Volume 88 fL (80-100); Mean Platelet Volume 10.3 fL (9.1-12.4); NEUTROPHILS ABSOLUTE AUTO 7.98 K/mm3 (1.96-9.15); NEUTROPHILS PERCENT AUTO 76 % (41-73); Platelet Count 437 K/mm3 (150-400); RDW Coefficient Variation 13.4 % (11.7-14.2); Red Blood Cell Count 5.59 M/mm3 (3.80-5.20); White Blood Cell Count 10.44 K/mm3 (4.00-11.30)
[2023-02-20 19:49] LABS: Appearance, Urine Turbid (Clear); Bilirubin, Urine Neg (Neg); Blood, Urine 5+ (Neg); Color, Urine Amber (P-Yellow); Glucose Qualitative, Urine Neg (Neg); Ketones, Urine 1+ (Neg); Leukocyte Esterase, Urine 3+ (Neg); Nitrite, Urine Pos (Neg); Protein, Urine 4+ (Neg); Urobilinogen, Urine 1+ (Normal)
[2023-02-20 19:52] LABS: Source, Urine Clean Catch
[2023-02-20 19:55] LABS: Bacteria Many /hpf; Red Blood Cells, Urine TNTC /hpf (0-2); Squamous Epithelial Cells Many /hpf (Few); White Blood Cells, Urine TNTC /hpf (0-5)
[2023-02-20 19:56] LABS: Yeast/Fungi Urine Many /hpf
[2023-02-20 20:26] LABS: U Amphetamine Screen DETECTED; U Barbituate Screen Not Detected; U Benzodiazapine Screen Not Detected; U Buprenorphine Screen Not Detected; U Cannabinoids Screen DETECTED; U Cocaine Screen Not Detected; U Methadone Screen Not Detected; U Methamphetamine Screen DETECTED; U Opiates Screen Not Detected; U Oxycodone Screen Not Detected; U Phencyclidine Screen Not Detected; U Propoxyphene Screen Not Detected
[2023-02-20 20:40] LABS: Source, Urine Straight Cath
[2023-02-20 21:04] LABS: Blood, Urine 5+ (Neg); Glucose Qualitative, Urine 1+ (Neg); Ketones, Urine 1+ (Neg); Leukocyte Esterase, Urine 3+ (Neg); Nitrite, Urine Neg (Neg); Protein, Urine 3+ (Neg); Urobilinogen, Urine 2+ (Normal)
[2023-02-20 21:17] LABS: Bilirubin, Urine 1+ (Neg)
[2023-02-20 21:24] LABS: Appearance, Urine Turbid (Clear); Bacteria Many /hpf; Color, Urine Yellow (P-Yellow); Red Blood Cells, Urine 25-50 /hpf (0-2); Squamous Epithelial Cells Few /hpf (Few); White Blood Cells, Urine TNTC /hpf (0-5)
[2023-02-21 00:37] VITALS: BP 124/89
--- NOTE | 2023-02-21 00:53 | NUR ---
VU ARRIVED TO ROOM FROM ED AT 0100, A/O RESPONDING APPROPRIATELY COOPERATIVE WITH CARE, SOMULENT. IV FLUIDS STARTED PER EMAR, ORIENTED TO ROOM, CALL LIGHT IN PLACE, BED ALARM ACTIVE
--- NOTE | 2023-02-21 04:37 | NUR ---
VU ARRIVED FROM ED AT 0100 A/O TO SELF PLACE AND SITUATION, SHE WAS AWAKE AND COOPERATIVE DURING TRANSFER BUT QUICKLY FELL ASLEEP AND WAS VERY SOMULENT THROUGHOUT THE SHIFT. ADMISSION HX/ASSESSMENTS INCOMPLETE AND NEEDS FURTHER EVALUATION WHEN THE PATIENT IS MORE ALERT. SHE WAS CALM AND NOT RESISTANT TO CARE. IV FLUIDS STARTED, SCDS PLACED, SHE IS RESTING WITH THE CALL LIGHT IN REACH
[2023-02-21 04:42] VITALS: BP 133/82
--- NOTE | 2023-02-21 04:43 | NUR ---
THIS TELEVISION SPECIALIST HAS REVIEWED AND AGREES WITH ALL NOTES AND ASSESSMENTS BY STEPHAN PEREYRA.
[2023-02-21 05:10] LABS: BASOPHILS ABSOLUTE AUTO 0.09 K/mm3 (0.00-0.23); BASOPHILS PERCENT AUTO 1 % (0-2); EOSINOPHILS ABSOLUTE AUTO 0.22 K/mm3 (0.00-0.68); EOSINOPHILS PERCENT AUTO 3 % (0-6); Hematocrit 43.5 % (33.0-51.0); Hemoglobin 14.3 g/dL (11.5-16.0); IMMATURE GRAN ABSOLUTE AUTO 0.04 K/mm3 (0.00-0.10); IMMATURE GRAN PERCENT AUTO 1 % (0-1); LYMPHOCYTES ABSOLUTE AUTO 2.57 K/mm3 (0.84-5.20); LYMPHOCYTES PERCENT AUTO 32 % (21-46); MONOCYTES PERCENT AUTO 6 % (4-13); Mean Corpuscular HGB 29.9 pg (26.0-34.0); Mean Corpuscular HGB Conc 32.9 g/dL (31.5-36.5); Mean Corpuscular Volume 91 fL (80-100); Mean Platelet Volume 10.1 fL (9.1-12.4); NEUTROPHILS ABSOLUTE AUTO 4.65 K/mm3 (1.96-9.15); NEUTROPHILS PERCENT AUTO 58 % (41-73); Platelet Count 316 K/mm3 (150-400); RDW Coefficient Variation 13.5 % (11.7-14.2); RDW Standard Deviation 45.4 fL (35.1-46.3); Red Blood Cell Count 4.79 M/mm3 (3.80-5.20); White Blood Cell Count 8.07 K/mm3 (4.00-11.30)
[2023-02-21 05:24] LABS: Albumin, Blood 2.7 g/dL (3.4-5.0); Albumin/Globulin Ratio 0.8 (0.8-1.8); Bilirubin, Total 0.4 mg/dL (0.1-1.0); Bun/Creatinine Ratio 20.9 (12.0-20.0); Calcium, Blood 8.2 mg/dL (8.5-10.1); Creatinine, Blood 0.62 mg/dL (0.40-1.00); Globulin, Blood 3.6 g/dL (2.2-4.0)
[2023-02-21 05:35] LABS: Total Protein, Blood 6.3 g/dL (6.4-8.2)
[2023-02-21 07:33] VITALS: BP 138/81
--- NOTE | 2023-02-21 09:56 | NUR ---
PT RIGHT LLE IS SWOLLEN, NON PITTING, PT STATES THAT THE LLE EXTREMETY DOES SWELL WHEN SHE IS UP IN THE CHAIR. NOTIFIED DR. DIANA MD BELIEVES SHE HAD A DOPPLER COMPLETED YESTERDAY, SHE WILL ORDER ONE IF NOT DONE. ELEVATE LOWER EXTREMETIES WITH PILLOWS
[2023-02-21] MEDS ORDERED: FARXIGA10 MG PO (16:16)
[2023-02-21] MEDS ORDERED: VICTOZA 2-0.6 MG/0.1 SC (16:17)
[2023-02-21 16:18] VITALS: BP 110/71
--- NOTE | 2023-02-21 16:32 | NUR ---
NO ACUTE CHANGES THIS SHIFT. PT IS CALM AND COOPERATIVE. LEFT SIDED WEAKNESS NOTED. PT/OT ARE INVOLVED. PT SEEMS TO BE MUCH MORE ALERT AND ORIENTED THAN LAST NIGHTS SHIFT. DENIES CHEST PAIN AND SOB. LLE EXTREMETY ELEVATED AND SUPPORTED WITH PILLOWS. PT ASKING TO BRING IN FOOD THAT IS NOT PART OF ADA DIET. EDUCATED PATIENT ON THE POTENTIAL FOR HARM, PT STATED THAT SHE UNDERSTOOD THE RISK BUT WOULD EAT IT ANYWAY.
[2023-02-21 20:49] VITALS: BP 137/75
--- NOTE | 2023-02-22 03:48 | NUR ---
SHIFT SUMMARY PT A&O X2-3. PT IDENTIFIES SELF, YEAR (NO DATE), AND THAT SHE WAS IN A HOSPITAL IN [place]. CALM AND COOPERATIVE WITH CARE. DENIES ANY PAIN OR DISCOMFORT AT THIS TIME. LEFT SIDED WEAKNESS DUE TO CVA, USES WHEELCHAIR AT BASELINE. LEFT LOWER EXTREMITY EDEMATOUS, FLOATED WITH PILLOWS. PT IS ON TELE, SR 79. PURWICK IN PLACE AND WORKING WELL FOR PATIENT. BED IN LOWEST POSITION AND CALL LIGHT WITHIN REACH. PT CALLS APPROPRIATELY AND IS ABLE TO MAKE NEEDS KNOWN.
[2023-02-22 04:44] VITALS: BP 188/98
[2023-02-22 05:14] LABS: BASOPHILS ABSOLUTE AUTO 0.08 K/mm3 (0.00-0.23); BASOPHILS PERCENT AUTO 1 % (0-2); EOSINOPHILS ABSOLUTE AUTO 0.18 K/mm3 (0.00-0.68); EOSINOPHILS PERCENT AUTO 3 % (0-6); Hematocrit 40.7 % (33.0-51.0); Hemoglobin 13.8 g/dL (11.5-16.0); IMMATURE GRAN ABSOLUTE AUTO 0.03 K/mm3 (0.00-0.10); IMMATURE GRAN PERCENT AUTO 0 % (0-1); LYMPHOCYTES PERCENT AUTO 35 % (21-46); MONOCYTES ABSOLUTE AUTO 0.39 K/mm3 (0.16-1.47); MONOCYTES PERCENT AUTO 6 % (4-13); Mean Corpuscular HGB 29.4 pg (26.0-34.0); Mean Corpuscular HGB Conc 33.9 g/dL (31.5-36.5); Mean Corpuscular Volume 87 fL (80-100); Mean Platelet Volume 9.9 fL (9.1-12.4); NEUTROPHILS ABSOLUTE AUTO 3.78 K/mm3 (1.96-9.15); NEUTROPHILS PERCENT AUTO 55 % (41-73); Platelet Count 335 K/mm3 (150-400); White Blood Cell Count 6.86 K/mm3 (4.00-11.30)
[2023-02-22 05:49] LABS: Albumin/Globulin Ratio 0.8 (0.8-1.8); Bilirubin, Total 0.6 mg/dL (0.1-1.0); Bun/Creatinine Ratio 18.3 (12.0-20.0); Calcium, Blood 8.7 mg/dL (8.5-10.1); Creatinine, Blood 0.55 mg/dL (0.40-1.00); Globulin, Blood 3.6 g/dL (2.2-4.0); Potassium, Blood 3.5 mmol/L (3.5-5.5); Total Protein, Blood 6.6 g/dL (6.4-8.2)
[2023-02-22 06:13] VITALS: BP 122/79
[2023-02-22 07:34] VITALS: BP 166/93
[2023-02-22 15:30] VITALS: BP 119/81
--- NOTE | 2023-02-22 18:22 | NUR ---
SUMMARY- PT A/O X3, NOT ORIENTED TO DETAILS OF DATE BUT KNOWS THE YEAR IS 2022 AND THAT SHE IS IN [facility]. DID NOT REMEMBER THE NAME OF THE PRESIDENT. PT ON BEDREST, UNABLE TO GET OOB RELATED TO L SIDED NEGLECT. SITS UP 90 DEGREES IN BED FOR MEALS. INCONT URINE WITH PUREWIC IN USE, LG AMOUNTS OF DIURESIS. TOLERATING FOOD AND FLUIDS. BLOOD SUGARS AROUND 200'S, COVERED WITH LOW SS HUMALOG. PLAN FOR SNF VS HOME HEALTH. PT'S MENTATION CLEARING, IS PLEASANT AND COOPERATIVE. WILL REPORT TO NOC RN
[2023-02-22 19:30] VITALS: BP 130/72
--- NOTE | 2023-02-23 00:07 | NUR ---
CALLED HOSPITALIST DUE TO LOSS OF IV ASSESS AND PATIENT REFUSING TO HAVE ANOTHE ELOY PLACED. DR FIGUEROA'D IV AND SWITCHED IV ANTIBIOTICS TO ORAL
[2023-02-23 02:47] VITALS: BP 160/81
--- NOTE | 2023-02-23 04:10 | NUR ---
SHIFT SUMMARY PT A&O X3, ABLE TO IDENTIFY SELF, YEAR (NO DATE), AND THAT SHE IS IN A HOSPITAL IN [place]. PT CALM AND COOPERATIVE WITH CARE. LOST IN ACCESS DURING THE SHIFT AND PATIENT DID NOT WANT ANOTHER PLACED. CALLED HOSPITALIST WHO AGREED TO DC THE IV AND SWITCHED IV ABX TO ORAL ABX. PT SLEPT MUCH OF THE NIGHT. DENIES ANY PAIN OR DISCOMFORT. PT INCONT WITH PURWICK IN PLACE, TOLERATING WELL. PT EXPERIENCES LEFT SIDED WEAKNESS/NEGLECT DUE TO PREVIOUS CVA, USES WHEELCHAIR AT BASELINE. BED IN LOWEST POSITION WITH CALL LIGHT IN REACH.
--- NOTE | 2023-02-23 05:42 | NUR ---
PUREWICK MALFUNCTIONING PT WAS REPORTED TO BE "SOAKED" AT END OF PREVIOUS PM SHIFT. AT BEGINNING OF THIS PM SHIFT WE AGAIN DISCOVERED THE PT TO BE WET. WE DID MAKE ADJUSTMENTS TO THE PUREWICK AND THE WALL GAUGE DEVICE, AND IT APPEARED TO BE WORKING FOR A TIME. HOWEVER IT WAS SOON DISCOVERED TO BE MALFUNCTIONING. WE HAVE SINCE REPLACED THE ENTIRE PUREWICK WELL THE WALL GAUGE DEVICE ITSELF. IT IS NOW TAGGED FOR REPAIR. THE NEW WALL GAUGE APPEARS TO BE FUNCTIONING INTENDED. BUT PLEASE BE ADVISED AND MONITOR CLOSELY.
[2023-02-23 07:36] VITALS: BP 133/81
[2023-02-23 16:44] VITALS: BP 127/80
[2023-02-23 19:16] VITALS: BP 103/78
--- NOTE | 2023-02-23 19:58 | NUR ---
SUMMARY- PT A/O X3, DOES NOT KNOW DETAILS DATES. DESPERATELY WANTS TO GO HOME AND INSISTING SHE GO HOME THIS EVENING AFTER SNF DECLINED HER TODAY UNTIL EVAL TOMORROW. RN ENC PT TO STAY TONIGHT AND THAT TOMORROW WOULD WORK OUT IF SHE GO HOME OR TO SNF. PT AGREED TO STAY. PT WORKED WITH PT/OT TODAY AND SAT AT THE EDGE OF BED. USING PUREWID FOR INCONT URINE. INCONT BM TODAY. SKIN REMIANS INTACT. TOLERATING FOOD AND FLUID, FEEDS SELF WITH SET UP. BLOOD SUGARS AC AND COVERED WITH SS HUMALOG. NEW NICOTINE PATCH PT STATES HELPFUL FOR NICOTINE WITHDRAWL. REPORTED TO NOC STEPHAN CHANEY.
[2023-02-24 02:38] VITALS: BP 134/88
--- NOTE | 2023-02-24 04:36 | NUR ---
SHIFT SUMMARY PATIENT ALERT, PLEASANT AND COOPERATIVE, FORGETFULL AT TIMES. DENIES PAIN NOR DISCOMFORT. VSS, SPO2 >90% ON RA. PUREWICH IN PLACE DUE TO INCONTINENCE. NO ACUTE CHANGES NOTED OVERNIGHT. BED IN LOW POSITION, CALL LIGHT WITHIN REACH.
[2023-02-24 07:30] VITALS: BP 151/92
[2023-02-24] MEDS ORDERED: NICO21TP TOP (12:57)
--- NOTE | 2023-02-24 15:53 | NUR ---
DC HOME WRITTEN & VERBAL DC INSTRUCTIONS GIVEN TO PT WITH CAREGIVER PRESENT, BOTH VERBALIZED GOOD UNDERSTANDING. NO IV TO DC. PUREWICK REMOVED. NEW SCRIPTS FAXED TO [facility] PER PT REQUEST. PT PLACED IN HER OWN W/C BY CAREGIVER AND TAKEN TO PV WITH ALL PERSONAL BELONGINGS.
== END 2023-02-24 16:20 | disposition home or self-care (01) | DRG 871 ==
LOC: ER 16:41 → MEDS 16:42 → ENPENDDIS 02-24 10:33 → MEDS 02-24 16:20
PROVIDERS: Family Medicine; Physician Assistant; Student in an Organized Health Care Education/Training Program; ADMIT Internal Medicine
DX: A41.9 Sepsis, unspecified organism (principal); G92.8 Other toxic encephalopathy; I69.354 Hemiplegia and hemiparesis following cerebral infarction affecting left non-dominant side; E87.20 Acidosis, unspecified; N39.0 Urinary tract infection, site not specified; I25.2 Old myocardial infarction; I50.9 Heart failure, unspecified; E11.65 Type 2 diabetes mellitus with hyperglycemia; E66.9 Obesity, unspecified; R54 Age-related physical debility; R65.20 Severe sepsis without septic shock; R29.810 Facial weakness; B96.1 Klebsiella pneumoniae [K. pneumoniae] as the cause of diseases classified elsewhere; I25.10 Atherosclerotic heart disease of native coronary artery without angina pectoris; F15.10 Other stimulant abuse, uncomplicated; F17.210 Nicotine dependence, cigarettes, uncomplicated; F32.A Depression, unspecified; B95.8 Unspecified staphylococcus as the cause of diseases classified elsewhere; F12.90 Cannabis use, unspecified, uncomplicated; Z98.890 Other specified postprocedural states; Z95.5 Presence of coronary angioplasty implant and graft; Z99.3 Dependence on wheelchair; Z88.8 Allergy status to other drugs, medicaments and biological substances; Z71.51 Drug abuse counseling and surveillance of drug abuser; Z79.84 Long term (current) use of oral hypoglycemic drugs; Z79.02 Long term (current) use of antithrombotics/antiplatelets; Z79.899 Other long term (current) drug therapy; Z68.39 Body mass index [BMI] 39.0-39.9, adult
CPT/HCPCS: 36415; 51701; 71045; 80053; 81001; 82947; 83605; 85025; 87040; 87077; 87086; 87186; 96361; 96361-59; 96365-59; 96372; 97110; 97112; 97162; 97166; 97530; 97535; 99285-25; A9270; G0378; J0696; J1650; J7030

== ENCOUNTER 2023-07-08 23:28 | Inpatient (IN) | payer MEDICARE, OTHER ==
[~2023-07-08] VITALS: Ht 180.3 cm; Wt 94.2 kg
[~2023-07-08 23:28] MED LIST changes: +FARXIGA10 MG PO; +NICO21TP TOP; +VICTOZA 2-0.6 MG/0.1 SC
[2023-07-08 23:41] LABS: BASOPHILS ABSOLUTE AUTO 0.07 K/mm3 (0.00-0.23); BASOPHILS PERCENT AUTO 1 % (0-2); EOSINOPHILS ABSOLUTE AUTO 0.15 K/mm3 (0.00-0.68); EOSINOPHILS PERCENT AUTO 2 % (0-6); Hematocrit 43.8 % (33.0-51.0); Hemoglobin 14.6 g/dL (11.5-16.0); IMMATURE GRAN ABSOLUTE AUTO 0.02 K/mm3 (0.00-0.10); IMMATURE GRAN PERCENT AUTO 0 % (0-1); LYMPHOCYTES ABSOLUTE AUTO 1.59 K/mm3 (0.84-5.20); LYMPHOCYTES PERCENT AUTO 23 % (21-46); MONOCYTES ABSOLUTE AUTO 0.34 K/mm3 (0.16-1.47); MONOCYTES PERCENT AUTO 5 % (4-13); Mean Corpuscular HGB 29.4 pg (26.0-34.0); Mean Corpuscular HGB Conc 33.3 g/dL (31.5-36.5); Mean Corpuscular Volume 88 fL (80-100); Mean Platelet Volume 9.9 fL (9.1-12.4); NEUTROPHILS ABSOLUTE AUTO 4.87 K/mm3 (1.96-9.15); NEUTROPHILS PERCENT AUTO 69 % (41-73); Platelet Count 373 K/mm3 (150-400); RDW Coefficient Variation 13.2 % (11.7-14.2); RDW Standard Deviation 42.6 fL (35.1-46.3); Red Blood Cell Count 4.97 M/mm3 (3.80-5.20); White Blood Cell Count 7.04 K/mm3 (4.00-11.30)
[2023-07-08 23:51] LABS: Source, Urine Fem Cath
[2023-07-08 23:57] LABS: Bilirubin, Urine Neg (Neg); Blood, Urine 1+ (Neg); Glucose Qualitative, Urine Neg (Neg); Ketones, Urine 3+ (Neg); Leukocyte Esterase, Urine 3+ (Neg); Nitrite, Urine Pos (Neg); Protein, Urine 2+ (Neg); Specific Gravity, Urine 1.025 (1.003-1.022); Urobilinogen, Urine 2+ (Normal)
[2023-07-08 23:58] LABS: Appearance, Urine Cloudy (Clear); Color, Urine Yellow (P-Yellow)
[2023-07-09 00:01] LABS: Alanine Aminotransfer (ALT/SGP 19 U/L (12-78); Albumin, Blood 3.1 g/dL (3.4-5.0); Albumin/Globulin Ratio 0.7 (0.8-1.8); Alk Phos 109 U/L (50-136); Anion Gap 5 mmol/L (6-16); Aspartate Aminotrans (AST/SGOT 13 U/L (12-37); Bilirubin, Total 0.7 mg/dL (0.1-1.0); Blood Urea Nitrogen 10 mg/dL (8-24); Bun/Creatinine Ratio 19.7 (12.0-20.0); CO2, Blood 26 mmol/L (21-32); Calcium, Blood 9.2 mg/dL (8.5-10.1); Chloride, Blood 109 mmol/L (98-108); Creatinine, Blood 0.51 mg/dL (0.40-1.00); Ethanol (Alcohol), Blood, Med <3 mg/dL; Globulin, Blood 4.2 g/dL (2.2-4.0); Glomerular Filtration Rate 106 (60-); Glucose, Blood 157 mg/dL (70-99); Magnesium, Blood 1.8 mg/dL (1.6-2.4); Potassium, Blood 3.6 mmol/L (3.5-5.5); Sodium, Blood 140 mmol/L (136-145); Total Protein, Blood 7.3 g/dL (6.4-8.2)
[2023-07-09 00:01] LABS: Bacteria Many /hpf; Red Blood Cells, Urine 0-2 /hpf (0-2); Squamous Epithelial Cells Few /hpf (Few)
[2023-07-09 00:10] LABS: U Amphetamine Screen DETECTED; U Barbituate Screen Not Detected; U Benzodiazapine Screen Not Detected; U Buprenorphine Screen Not Detected; U Cannabinoids Screen DETECTED; U Cocaine Screen Not Detected; U Methadone Screen Not Detected; U Methamphetamine Screen DETECTED; U Opiates Screen Not Detected; U Oxycodone Screen Not Detected; U Phencyclidine Screen Not Detected
[2023-07-09 00:42] LABS: Influenza A, PCR NEGATIVE (NEGATIVE); Influenza B, PCR NEGATIVE (NEGATIVE); Resp Syncytial Virus, PCR NEGATIVE (NEGATIVE); SARS-Cov-2 (COVID-19) PCR, MMC NEGATIVE (NEGATIVE)
[2023-07-09 02:29] LABS: International Normalized Ratio 1.01; Prothrombin Time Results 10.6 Sec (9.7-11.5)
--- NOTE | 2023-07-09 03:00 | NUR ---
NEW ADMIT.SHIFT SUMMARY. PATIENT ADMITTED TO ROOM 331 FROM THE ER. PATIENT ARRIVE VIA GURNEY AND ONE PERSON TRANSFER. PATIENT ARRIVED WITH NORMAL SALINE RUNNING AT 75ML/HR. PATIENT TRANSFERED FROM [facility] TO HOSPITAL BED WITH 4 PERSON ASSIST AND SLIDER SHEET. PATIENT BED IS LOCKED IN THE LOWEST POSITION WITH CALL LIGHT IN REACH. BED EXIT ALARM ENGAGED FOR PATIENT SAFETY.
--- NOTE | 2023-07-09 04:48 | NUR ---
SHIFT SUMMARY. PATIENT ADMITTED TO FLOOR WITH ALTERED MENTAL STATUS. PATIENT IS ALERT TO SELF ONLY. AT THIS TIME VU IS BEDREST D/T WEAKNESS AND MENTATION. PATIENT IS A POOR HISTORIAN AND UNABLE TO ANSWER QUESTIONS APPROPRIATELY AT THIS TIME. PATIENT HAS A HISTORY OF STROKE IN 2004 W/ LEFT SIDED WEAKNESS- WEAKNESS TO LUE NOTED. PATIENT IS VERY TIRED. PATIENT IS NPO. PATIENT IS RESTIN IN BED WITH RESPIRATIONS EQUAL AND UNLABORED. BED IS LOCKED IN THE LOWEST POSITION W/CALL LIGHT IN REACH. BED EXIT ALARM ENGAGED FOR PATIENT SAFETY.
[2023-07-09 07:11] VITALS: BP 146/78
[2023-07-09 07:35] LABS: BASOPHILS ABSOLUTE AUTO 0.05 K/mm3 (0.00-0.23); BASOPHILS PERCENT AUTO 1 % (0-2); EOSINOPHILS ABSOLUTE AUTO 0.15 K/mm3 (0.00-0.68); EOSINOPHILS PERCENT AUTO 2 % (0-6); Hematocrit 39.3 % (33.0-51.0); Hemoglobin 13.4 g/dL (11.5-16.0); IMMATURE GRAN ABSOLUTE AUTO 0.02 K/mm3 (0.00-0.10); IMMATURE GRAN PERCENT AUTO 0 % (0-1); LYMPHOCYTES ABSOLUTE AUTO 1.57 K/mm3 (0.84-5.20); LYMPHOCYTES PERCENT AUTO 22 % (21-46); MONOCYTES ABSOLUTE AUTO 0.39 K/mm3 (0.16-1.47); MONOCYTES PERCENT AUTO 6 % (4-13); Mean Corpuscular HGB 29.6 pg (26.0-34.0); Mean Corpuscular HGB Conc 34.1 g/dL (31.5-36.5); Mean Corpuscular Volume 87 fL (80-100); Mean Platelet Volume 9.8 fL (9.1-12.4); NEUTROPHILS ABSOLUTE AUTO 4.88 K/mm3 (1.96-9.15); NEUTROPHILS PERCENT AUTO 69 % (41-73); Platelet Count 338 K/mm3 (150-400); RDW Coefficient Variation 13.2 % (11.7-14.2); RDW Standard Deviation 41.8 fL (35.1-46.3); Red Blood Cell Count 4.53 M/mm3 (3.80-5.20); White Blood Cell Count 7.06 K/mm3 (4.00-11.30)
[2023-07-09 07:56] LABS: Albumin, Blood 2.8 g/dL (3.4-5.0); Albumin/Globulin Ratio 0.8 (0.8-1.8); Bilirubin, Total 0.6 mg/dL (0.1-1.0); Bun/Creatinine Ratio 19.8 (12.0-20.0); Calcium, Blood 8.6 mg/dL (8.5-10.1); Creatinine, Blood 0.4 mg/dL (0.40-1.00); Globulin, Blood 3.5 g/dL (2.2-4.0); Potassium, Blood 3.3 mmol/L (3.5-5.5); Total Protein, Blood 6.3 g/dL (6.4-8.2)
--- NOTE | 2023-07-09 11:00 | NUR ---
CARBON FURNACE OPERATOR HELPER CALLED AND GAVE A PRELIM RESULT OF PATIENT'S CAROTID STUDY TAKEN THIS MORNING. CALL WAS TAKEN AT 0930 AND REPORTED A 50-69% OCCULSION OF THE L ICA AND A GREATER THAN 70% OCCULSION OF THE R ICA. CALL MADE TO DR. WELLINGTON AND NOTIFIED. ALSO SPOKE WITH DR. WELLINGTON ABOUT PATIENT BEING NPO AND HAVING DM WITH NO BLOOD SUGAR ORDER. DR. WELLINGTON ADVISED TO DO A BEDSIDE NURSE SWALLOW EVALUATION AND IF THE PATIENT TOLERANTS TO ADVANCE TO AN ADA DIET, Q6HR BLOOD SUGARS WHILE STILL NPO AND TO CHANGE TO AC&HS BLOOD SUGARS IF NOT NPO. ALSO ORDERED TO PLACE AN ORDER FOR HUMALOG LOW SLIDING SCALE CORRECTION. ORDER PLACED.
--- NOTE | 2023-07-09 14:26 | NUR ---
SWALLOW EVALUATION BEDSIDE-JESSY (INTERVENTION ADDED, BUT UNABLE TO LOCATE IN INTERVENTION) TRIALED WATER WITH THE PATIENT WITH AND WITHOUT STRAW. SHE TOLERATED WELL, PREFERS NO STRAW. GAVE THE PATIENT PUDDING, GRAHM CRACKERS, AND TOGETHER; ALSO DID WELL. NO COUGHING OR CHOKING OR OTHER SIGNS OF ASPIRATION OR SWALLOWING ISSUES. SHE ALSO TOOK ORAL PILLS WELL. SHE IS UNABLE TO FEED HERSELF. REQUIRES A FEEDER.
[2023-07-09 16:20] VITALS: BP 169/107
[2023-07-09 16:32] VITALS: BP 137/81
--- NOTE | 2023-07-09 18:46 | NUR ---
SHIFT SUMMARY: PT IS A 63 YEAR OLD FEMALE HERE FOR AMS SECONDARY TO UTI AND A SUB ACUTE LEFT SIDED CVA FOUND ON IMAGING. SHE HAS BEEN IN BED THE ENTIRE SHIFT DUE TO AWAITING PT/OT EVALUATION. DID A BEDSIDE SWALLOW EVALUTION AND PATIENT TOLERATED FINE. SHE WAS ABLE TO FEED HERSELF DINNER. SHE HAS SHOWN SIGNS OF COGNITIVE IMPROVEMENT LATER INTO THE SHIFT. SHE IS SHOWING MORE SIGNS OF AGGITATION WITH MORE ALERTNESS AT THIS TIME STATING SHE IS GOING TO GO HOME NOW, BUT HASN'T TRIED GETTING OUT OF BED. BED ALARM SET. CALL LIGHT WITHIN REACH, NO SIGNS OR SYMPTOMS OF DISTRESS, BED IN LOWEST POSITION. PLAN OF CARE ONGOING.
[2023-07-09 19:06] VITALS: BP 143/115
--- NOTE | 2023-07-10 00:26 | NUR ---
PATIENT HAS HAD MULTIPLE INCIDENCES OF DIGGING IN HER BRIEF AND BM PER REPORT ON DAY SHIFT, BRETT PATIENT HAS HAD 3 INCIDENCES OF DIGGING IN BRIEG AND BM AND BEDCHANGES D/T FECAL MATTER ON BEDDINGS AND PATIENT. CALLED HOSPITALIST REGARDING COZY HAND MITS FOR PATIENT. ORDERED FOR HAND MITS FOR PATIENT.
[2023-07-10 04:12] VITALS: BP 178/109
[2023-07-10 05:31] LABS: BASOPHILS ABSOLUTE AUTO 0.04 K/mm3 (0.00-0.23); BASOPHILS PERCENT AUTO 1 % (0-2); EOSINOPHILS ABSOLUTE AUTO 0.11 K/mm3 (0.00-0.68); EOSINOPHILS PERCENT AUTO 2 % (0-6); Hematocrit 40.5 % (33.0-51.0); Hemoglobin 13.8 g/dL (11.5-16.0); IMMATURE GRAN ABSOLUTE AUTO 0.01 K/mm3 (0.00-0.10); IMMATURE GRAN PERCENT AUTO 0 % (0-1); LYMPHOCYTES ABSOLUTE AUTO 1.14 K/mm3 (0.84-5.20); LYMPHOCYTES PERCENT AUTO 20 % (21-46); MONOCYTES ABSOLUTE AUTO 0.33 K/mm3 (0.16-1.47); MONOCYTES PERCENT AUTO 6 % (4-13); Mean Corpuscular HGB 29.2 pg (26.0-34.0); Mean Corpuscular HGB Conc 34.1 g/dL (31.5-36.5); Mean Corpuscular Volume 86 fL (80-100); Mean Platelet Volume 9.6 fL (9.1-12.4); NEUTROPHILS ABSOLUTE AUTO 4.15 K/mm3 (1.96-9.15); NEUTROPHILS PERCENT AUTO 72 % (41-73); Platelet Count 298 K/mm3 (150-400); RDW Coefficient Variation 12.9 % (11.7-14.2); RDW Standard Deviation 39.9 fL (35.1-46.3); Red Blood Cell Count 4.73 M/mm3 (3.80-5.20); White Blood Cell Count 5.78 K/mm3 (4.00-11.30)
[2023-07-10 06:00] LABS: Anion Gap 10 mmol/L (6-16); Blood Urea Nitrogen 4 mg/dL (8-24); Bun/Creatinine Ratio 10.2 (12.0-20.0); CO2, Blood 21 mmol/L (21-32); Calcium, Blood 8.7 mg/dL (8.5-10.1); Chloride, Blood 109 mmol/L (98-108); Cholesterol 174 mg/dL (50-200); Creatinine, Blood 0.39 mg/dL (0.40-1.00); Glomerular Filtration Rate 113 (60-); Glucose, Blood 125 mg/dL (70-99); HDL Cholesterol 29 mg/dL (>39); LDL/HDL RATIO 4.2; Low Density Lipoprotein Chol 121 mg/dL (0-110); Magnesium, Blood 1.7 mg/dL (1.6-2.4); Potassium, Blood 3.3 mmol/L (3.5-5.5); Sodium, Blood 140 mmol/L (136-145); Triglycerides 118 mg/dL (30-160); Very Low Density Lipoprot Chol 23 mg/dL (6-32)
--- NOTE | 2023-07-10 06:06 | NUR ---
SHIFT SUMMARY. PATIENT IS A 63 YEAR OLD FEMALE IN WITH ACUTE ENCEPHALOPATHY. PATIENT HAS BEEN BEDREST D/T MENTATION. PATIENT EVALUATED FOR STROKE DURING STAY AND IS POSITIVE FOR SUBACUTE ISCHEMIC CVA FOUND ON IMAGING. PATIENT HAS LEFT SIDED DEFICITS FROM PREVIOUS STROKE. PATIENT IS IN NON-VIOLENT RESTRAINTS. PATIENT IS ALERT TO SELF. PATIENT OFFERED DRINKS AND CHANGED NEED FOR INCONTINENCE. BED IN LOCKED IN LOWEST POSITION W/CALL LIGHT IN REACH.
[2023-07-10 07:36] VITALS: BP 187/88
[2023-07-10 09:56] VITALS: BP 169/88
[2023-07-10 14:55] VITALS: BP 173/99
--- NOTE | 2023-07-10 18:39 | NUR ---
PATIENT BECAME MORE ALERT AND CONVERSIVE THE DAY PROGRESSED. WORKED WITH PT/OT THIS AM AND WAS A 2 MAX ASSIST TO CHAIR. UNABLE TO TOLERATE THE CHAIR VERY LONG. PATIENT HAS LEFT SIDE DEFICIT AT BASELINE AND IS W/C BOUND. PATIENT REFUSING TO TAKE MEDICATIONS THIS AM. POTASSIUM SWITCHED TO IV AND PATIENT RECEIVED ABOUT HALF OF THE BAG BEFORE HER IV STARTED LEAKING. PATIENT REFUSING TO HAVE NEW IV STARTED AFTER ATTEMPT WAS MADE. DR WELLINGTON NOTIFIED AND IV MEDICATIONS CHANGED TO PO. ABLE TO TAKE [place]ARTAN, BUT THEN REFUSED OTHER PILLS. PATIENT VERY TEARFUL AT TIMES AND HAVING SOME DIFFICULTY WITH WORD FINDING. VERY POOR PO INTAKE TODAY. PATIENT STATES "I DON'T WANT TO DO THIS ANYMORE." AND GRANDDAUGHTER AT BEDSIDE THIS AFTERNOON AND SEEMED TO UPSET PATIENT MORE. PLAN IS TO D/C HOME WITH HOME HEALTH.
[2023-07-10 19:59] VITALS: BP 153/101
--- NOTE | 2023-07-11 03:14 | NUR ---
ASSUMED CARE PT APPEARS TO BE SLEEPING AT TIME, RESP UNLABORED, CALL LIGHT IN REACH
[2023-07-11 05:02] VITALS: BP 152/106
[2023-07-11 07:24] VITALS: BP 133/86
--- NOTE | 2023-07-11 11:25 | NUR ---
1125- PT REFUSING ALL AM MEDS AND LUNCH CHEM BG. ELIZ AWARE.
[2023-07-11] MEDS ORDERED: APHEN325 MG PO (11:48)
[2023-07-11] MEDS ORDERED: ASPI81CH PO (11:49)
[2023-07-11] MEDS ORDERED: LOSA50 PO (11:50)
[2023-07-11] MEDS ORDERED: CEPH500 PO (11:50)
[2023-07-11] MEDS ORDERED: MICO100S VAG (11:51)
[2023-07-11] MEDS ORDERED: VISBIOME 112.51 EACH PO (11:51)
--- NOTE | 2023-07-11 13:50 | NUR ---
DC-1150- PT LEFT BROUGHT DOWN FOR DC IN BY ASHLEY ASHLEY ACCOMPANIED BY DAUGHTER AND FRIEND. CAREGIVER MET PT OUTSIDE TO HELP ASSIST DAUGHTER AND FRIEND WITH TRANSFER FROM [facility] WC TO PT'S VEHICLE. FAMILY/PT INFORMED ABOUT PT'S BEW RX TO SIZE MAKER. PT LEFT WITH ALL BELONGINGS.
== END 2023-07-11 12:51 | disposition home health service (06) | DRG 64 ==
LOC: ER 23:28 → MEDS 23:29 → ENPENDDIS 07-11 10:46 → MEDS 07-11 12:51
PROVIDERS: Emergency Medicine; Internal Medicine; ADMIT Internal Medicine
DX: I63.532 Cerebral infarction due to unspecified occlusion or stenosis of left posterior cerebral artery (principal); G93.41 Metabolic encephalopathy; I50.32 Chronic diastolic (congestive) heart failure; I69.354 Hemiplegia and hemiparesis following cerebral infarction affecting left non-dominant side; N39.0 Urinary tract infection, site not specified; Z16.29 Resistance to other single specified antibiotic; R47.01 Aphasia; I65.23 Occlusion and stenosis of bilateral carotid arteries; B96.1 Klebsiella pneumoniae [K. pneumoniae] as the cause of diseases classified elsewhere; F19.10 Other psychoactive substance abuse, uncomplicated; E11.9 Type 2 diabetes mellitus without complications; F15.10 Other stimulant abuse, uncomplicated; F32.A Depression, unspecified; F17.210 Nicotine dependence, cigarettes, uncomplicated; E86.0 Dehydration; Z71.51 Drug abuse counseling and surveillance of drug abuser; Z11.52 Encounter for screening for COVID-19; Z79.02 Long term (current) use of antithrombotics/antiplatelets; Z79.84 Long term (current) use of oral hypoglycemic drugs; Z28.21 Immunization not carried out because of patient refusal
CPT/HCPCS: 0241U; 36415; 51701; 70450; 71045; 80048; 80053; 80061; 81001; 82947; 83605; 83690; 83735; 83880; 84145; 85025; 85610; 87040; 87077; 87086; 87186; 93005; 93010; 93306; 93880; 96361; 96361-59; 96365-59; 96366; 96367; 96372; 97162; 97165; 97530; 99285-25; A9270; G0378; J0360; J0696; J1650; J3480; J7030; J7050; J7120

== ENCOUNTER 2023-08-11 22:25 | Inpatient (IN) | payer MEDICARE, OTHER ==
[~2023-08-11] VITALS: Ht 170.2 cm; Wt 91.3 kg
[~2023-08-11 22:25] MED LIST changes: +APHEN325 MG PO; +ATOR40TA PO; +LOSA50 PO; +MICO100S VAG; +VISBIOME 112.51 EACH PO
[2023-08-11] MEDS ORDERED: NS 1,000 ML IV SCH (22:35)
[2023-08-11] MEDS ORDERED: Dextrose 50% 50 ML Syringe IV ONE (23:05)
[2023-08-11 23:08] LABS: BASOPHILS PERCENT AUTO 1 % (0-2); Base Excess Venous -1.9 mmol/L; Bicarbonate Venous 22.9 mmol/L (24.0-30.0); EOSINOPHILS ABSOLUTE AUTO 0.29 K/mm3 (0.00-0.68); EOSINOPHILS PERCENT AUTO 3 % (0-6); Hematocrit 42.1 % (33.0-51.0); IMMATURE GRAN ABSOLUTE AUTO 0.05 K/mm3 (0.00-0.10); IMMATURE GRAN PERCENT AUTO 1 % (0-1); LYMPHOCYTES ABSOLUTE AUTO 3.54 K/mm3 (0.84-5.20); LYMPHOCYTES PERCENT AUTO 39 % (21-46); MONOCYTES ABSOLUTE AUTO 0.58 K/mm3 (0.16-1.47); MONOCYTES PERCENT AUTO 6 % (4-13); Mean Corpuscular HGB 29.2 pg (26.0-34.0); Mean Corpuscular HGB Conc 33.3 g/dL (31.5-36.5); Mean Corpuscular Volume 88 fL (80-100); Mean Platelet Volume 10.2 fL (9.1-12.4); NEUTROPHILS ABSOLUTE AUTO 4.54 K/mm3 (1.96-9.15); NEUTROPHILS PERCENT AUTO 50 % (41-73); PCO2 Venous 39.8 mmHg (38-42); Platelet Count 307 K/mm3 (150-400); RDW Coefficient Variation 13.8 % (11.7-14.2); RDW Standard Deviation 44.3 fL (35.1-46.3); pH Blood Venous 7.38 (7.34-7.37)
[2023-08-11 23:25] LABS: Source, Urine Straight Cath
[2023-08-11 23:48] LABS: Bilirubin, Urine Neg (Neg); Blood, Urine Neg (Neg); Glucose Qualitative, Urine 3+ (Neg); Ketones, Urine 1+ (Neg); Leukocyte Esterase, Urine 1+ (Neg); Nitrite, Urine Neg (Neg); Protein, Urine 2+ (Neg); Urobilinogen, Urine 3+ (Normal)
[2023-08-11 23:52] LABS: Influenza A, PCR NEGATIVE (NEGATIVE); Influenza B, PCR NEGATIVE (NEGATIVE); Resp Syncytial Virus, PCR NEGATIVE (NEGATIVE); SARS-Cov-2 (COVID-19) PCR, MMC NEGATIVE (NEGATIVE)
[2023-08-11 23:53] LABS: Alanine Aminotransfer (ALT/SGP 25 U/L (12-78); Albumin, Blood 3.1 g/dL (3.4-5.0); Albumin/Globulin Ratio 0.9 (0.8-1.8); Alk Phos 94 U/L (50-136); Anion Gap 4 mmol/L (6-16); Aspartate Aminotrans (AST/SGOT 26 U/L (12-37); Bilirubin, Total 0.5 mg/dL (0.1-1.0); Blood Urea Nitrogen 14 mg/dL (8-24); Bun/Creatinine Ratio 22.5 (12.0-20.0); CO2, Blood 24 mmol/L (21-32); Calcium, Blood 8.6 mg/dL (8.5-10.1); Chloride, Blood 114 mmol/L (98-108); Creatinine, Blood 0.62 mg/dL (0.40-1.00); Ethanol (Alcohol), Blood, Med <3 mg/dL; Globulin, Blood 3.5 g/dL (2.2-4.0); Glomerular Filtration Rate 101 (60-); Glucose, Blood 110 mg/dL (70-99); Magnesium, Blood 1.9 mg/dL (1.6-2.4); Potassium, Blood 4.2 mmol/L (3.5-5.5); Sodium, Blood 142 mmol/L (136-145); Total Protein, Blood 6.6 g/dL (6.4-8.2)
[2023-08-11 23:55] LABS: Appearance, Urine Hazy (Clear); Color, Urine Yellow (P-Yellow)
[2023-08-11 23:57] LABS: Bacteria Mod /hpf; Hyaline Casts 0-2 /lpf (0-2); Mucus Light (0-Heavy); Red Blood Cells, Urine 0-2 /hpf (0-2); Squamous Epithelial Cells Many /hpf (Few)
[2023-08-12] VITALS (7 sets, daily range): BP systolic 93–132; BP diastolic 53–80
[2023-08-12 00:07] LABS: U Amphetamine Screen Not Detected; U Barbituate Screen Not Detected; U Benzodiazapine Screen Not Detected; U Buprenorphine Screen Not Detected; U Cannabinoids Screen DETECTED; U Cocaine Screen Not Detected; U Methadone Screen Not Detected; U Methamphetamine Screen Not Detected; U Opiates Screen Not Detected; U Oxycodone Screen Not Detected; U Phencyclidine Screen Not Detected
[2023-08-12] MEDS ORDERED: Acetaminophen 325 MG TABLET PO PRN (01:35)
[2023-08-12] MEDS ORDERED: FLU VACC QS2023-24(6MOS UP)/PF 60 MCG/0.5 ML SYRINGE IM ONE (01:35)
[2023-08-12] MEDS ORDERED: Ondansetron HCl 2 MG / ML 2ML Vial IV PRN (01:35)
[2023-08-12] MEDS ORDERED: NS 1,000 ML IV SCH (02:00)
--- NOTE | 2023-08-12 03:42 | NUR ---
ASSUMED CARE PT ARRIVED ON UNIT DROWSY, BUT ALERT AND ORIENTED TO SELF ONLY. ABLE TO FOLLOW COMMANDS AND MAKE REQUESTS APPROPRIATELY. PT STATES SHE HAS 2/10 ABDOMINAL PAIN THAT DOES NOT INCREASE W/ PALPATION THAT "MIGHT BE" BLOATING. DENIES PAIN ANYWHERE ELSE. STATES SHE JUST WOULD LIKE TO SLEEP. PT IS PLEASANT AND COOPERATIVE W/ CARE. PT HAS SOFT PRESSURES, OTHERWISE, VITAL SIGNS ARE STABLE. PUREWICK IN PLACE.
[2023-08-12 04:09] LABS: Bun/Creatinine Ratio 24.1 (12.0-20.0); Creatinine, Blood 0.62 mg/dL (0.40-1.00); Potassium, Blood 4.2 mmol/L (3.5-5.5)
--- NOTE | 2023-08-12 05:57 | NUR ---
SHIFT SUMMARY NO ACUTE EVENTS SINCE ASSUMED CARE NOTE. PT HAS SLEPT THIS WHOLE TIME.
[2023-08-12] MEDS ORDERED: Enoxaparin 40 MG/0.4 ML SYR SC SCH (09:00)
--- NOTE | 2023-08-12 12:28 | NUR ---
REASSESSMENT PT HAS BEEN RESTING IN BED THROUGHOUT THE MORNING.SHE IS ORIENTED TO HERSELF. SHE ANSWERS QUESTIONS, BUT NOT ALWAYS APPROPRIATELY. SHE SAYS "YEAH" TO MANY QUESTIONS OR JUST SAYS "THANK YOU" WHEN CARES ARE EXPLAINED TO HER. LUNGS ARE CLEAR, RA, SR, BP STABLE. BLOOD SUGARS HAVE BEEN STABLE WELL. PURE WICK DRAINING YELLOW URINE. STILL WAITING ON PT'S TO ARRIVE WITH MED LIST. PT'S GRANDDAUGHTER CALLED AND SAYS HE OFTEN DOESN'T WAKE UP TILL AROUND NOON.
[2023-08-12] MEDS ORDERED: NEBI5 PO (15:29)
[2023-08-12] MEDS ORDERED: DULO60 PO (15:30)
[2023-08-12] MEDS ORDERED: FISH OIL 1,2001 EAC7 PO (15:31)
[2023-08-12] MEDS ORDERED: GLIP5 PO (15:33)
[2023-08-12] MEDS ORDERED: METF500 PO (15:34)
[2023-08-12] MEDS ORDERED: ISOSORBIDE MONO30 MG PO (15:36)
[2023-08-12] MEDS ORDERED: LORA10ER PO (15:36)
[2023-08-12] MEDS ORDERED: PREG75 PO (15:37)
[2023-08-12] MEDS ORDERED: RYBELSUS7 MG PO (15:37)
--- NOTE | 2023-08-12 16:28 | NUR ---
TRANSFER PT TRANSFERRED TO 341 VIA BED WITH RN. REPORT GIVEN TO STEPHAN LINDSEY. PT'S AT BEDSIDE AT TIME OF TRANSFER. DR. JIMENEZ ROUNDED ON PT JUST BEFFORE SHE LEFT THE UNIT AND REVIEWED THE MED LIST PT'S BROUGHT IN. PT'S ALSO MENTIONED THAT PT WANTS TO BE DNR, WHICH PT STATES IS TRUE. DR. JIMENEZ NOTIFIED AND GAVE DNR ORDER. PT'S SAYS PT IS NOT ON ANY DIET MODIFICATIONS AT HOME AND ISN'T AWARE IF SHE HAS EVER BEEN SEEN BY SPEECH THERAPY. AT LUNCH, PT WAS POCKETING FOOD AND HAD TO BE CUED TO SWALLOW THE BITE THAT WAS IN HER MOUTH OR SHE WOULD JUST KEEP PUTTING FOOD IN. DR. JIMENEZ AWARE AND GAVE ORDER FOR SPEECH THERAPY.
--- NOTE | 2023-08-12 18:09 | NUR ---
SHIFT SUMMARY TRANSFER FROM ICU THIS SHIFT, A/OX2, AT BEDSIDE, LEFT ARM FLACCID WITH NO SENSATION. LEFT LEG NON- MEANINFUL MOVEMENTS WITH DECREASED HEAVY TOUCH SENSATION. PUREWICK PLACED. CARES ONGOING.
[2023-08-12] MEDS ORDERED: Acetaminophen650 M1 PO (22:57)
[2023-08-12] MEDS ORDERED: PRAM.5 PO (22:59)
[2023-08-12] MEDS ORDERED: KLOR-CON 1010 ME9 PO (23:00)
[2023-08-12] MEDS ORDERED: LISI20 PO (23:01)
[2023-08-12] MEDS ORDERED: FAMO20 PO (23:01)
[2023-08-12] MEDS ORDERED: AMLODIPINE BESYL5 MG PO (23:02)
[2023-08-12] MEDS ORDERED: GLIPIZIDE-METF1 EAC1 PO (23:04)
[2023-08-12] MEDS ORDERED: Ventolin/Prove6.7 GM INH (23:05)
[2023-08-13] MEDS ORDERED: Albuterol HFA200 ACT/6.7 GM INH INH PRN (00:20)
[2023-08-13 02:09] VITALS: BP 160/82
[2023-08-13 05:34] LABS: BASOPHILS ABSOLUTE AUTO 0.06 K/mm3 (0.00-0.23); BASOPHILS PERCENT AUTO 1 % (0-2); EOSINOPHILS ABSOLUTE AUTO 0.19 K/mm3 (0.00-0.68); EOSINOPHILS PERCENT AUTO 3 % (0-6); Hematocrit 39.2 % (33.0-51.0); IMMATURE GRAN ABSOLUTE AUTO 0.02 K/mm3 (0.00-0.10); IMMATURE GRAN PERCENT AUTO 0 % (0-1); LYMPHOCYTES ABSOLUTE AUTO 2.31 K/mm3 (0.84-5.20); LYMPHOCYTES PERCENT AUTO 31 % (21-46); MONOCYTES ABSOLUTE AUTO 0.36 K/mm3 (0.16-1.47); MONOCYTES PERCENT AUTO 5 % (4-13); Mean Corpuscular HGB 29.3 pg (26.0-34.0); Mean Corpuscular HGB Conc 33.2 g/dL (31.5-36.5); Mean Corpuscular Volume 88 fL (80-100); Mean Platelet Volume 10.1 fL (9.1-12.4); NEUTROPHILS ABSOLUTE AUTO 4.59 K/mm3 (1.96-9.15); NEUTROPHILS PERCENT AUTO 61 % (41-73); Platelet Count 254 K/mm3 (150-400); RDW Coefficient Variation 13.6 % (11.7-14.2); RDW Standard Deviation 44.6 fL (35.1-46.3); Red Blood Cell Count 4.44 M/mm3 (3.80-5.20); White Blood Cell Count 7.53 K/mm3 (4.00-11.30)
--- NOTE | 2023-08-13 05:59 | NUR ---
SHIFT SUMMARY NOC PT A/O TO SELF. PLEASANTLY CONFUSED AND COOPERATIVE WITH CARE. NO ACUTE CHANGES TO REPORT. BP STABLE. PT CALLS OUT FREQUENTLY FOR HELP, BUT WHEN CHECKED IS OK. PT HAS PUREWICK IN PLACE FOR INCONTINENCE. HAD INC L BM. ON Q4H CBG AND SO FAR WNL. PT POSSIBLE DISCHARGE TODAY. PT IS CURRENTLY RESTING WITH BED ALARM ON, BED IN LOWEST POSITION, AND CALL LIGHT WITHIN REACH.
[2023-08-13 06:33] LABS: Bun/Creatinine Ratio 21.9 (12.0-20.0); Calcium, Blood 9.1 mg/dL (8.5-10.1); Creatinine, Blood 0.5 mg/dL (0.40-1.00); Potassium, Blood 3.5 mmol/L (3.5-5.5)
[2023-08-13 08:41] VITALS: BP 172/88
[2023-08-13] MEDS ORDERED: CefTRIAXone Sodium 1,000 MG in NS 50 ML IV SCH (09:00)
[2023-08-13] MEDS ORDERED: Pregabalin 75 MG Cap PO SCH (09:00)
[2023-08-13] MEDS ORDERED: Aspirin 81 MG Chew PO SCH (09:00)
[2023-08-13] MEDS ORDERED: Clopidogrel Bisulfate 75 MG Tab PO SCH (09:00)
[2023-08-13] MEDS ORDERED: Lisinopril 20 MG Tab PO SCH (09:00)
[2023-08-13] MEDS ORDERED: AmLODIPine Besylate 5 MG Tab PO SCH (14:00)
--- NOTE | 2023-08-13 16:13 | NUR ---
DISCHARGE SUMMARY PATIENT DISCHARGED THIS SHIFT VIA STRETCHER AND AMBULANCE. IV REMOVED, NO COMPLICATIONS. DISCHARGE PACKET DISCUSSED WITH CAREGIVER RAPHAEL SPOUSE STATED HE DIDN'T WANT TO PARTICIPATE. RAPHAEL VERBALIZED UNDERSTANDING. CALLED BACK AT 1600 TO DISCUSS MODIFICATIONS TO D/C MED LIST, VERBALIZED UNDERSTANDING.
[2023-08-13] MEDS ORDERED: Atorvastatin 40 MG Tab PO SCH (21:00)
== END 2023-08-13 15:12 | disposition home health service (06) | DRG 314 ==
LOC: ER 22:25 → ICUE 22:26 → MEDS 22:26 → ICUE 08-12 02:40 → MEDS 08-12 16:04 → ENPENDDIS 08-13 14:15 → MEDS 08-13 15:12
PROVIDERS: Student in an Organized Health Care Education/Training Program; ADMIT Internal Medicine
DX: I95.9 Hypotension, unspecified (principal); G92.8 Other toxic encephalopathy; I69.354 Hemiplegia and hemiparesis following cerebral infarction affecting left non-dominant side; F03.93 Unspecified dementia, unspecified severity, with mood disturbance; E11.649 Type 2 diabetes mellitus with hypoglycemia without coma; F15.11 Other stimulant abuse, in remission; I25.10 Atherosclerotic heart disease of native coronary artery without angina pectoris; I50.9 Heart failure, unspecified; I25.2 Old myocardial infarction; Z95.5 Presence of coronary angioplasty implant and graft; Z88.8 Allergy status to other drugs, medicaments and biological substances; Z87.891 Personal history of nicotine dependence; Z79.84 Long term (current) use of oral hypoglycemic drugs; Z79.85 Long-term (current) use of injectable non-insulin antidiabetic drugs; Z79.02 Long term (current) use of antithrombotics/antiplatelets; Z79.82 Long term (current) use of aspirin; Z11.52 Encounter for screening for COVID-19
CPT/HCPCS: 0241U; 36415; 70450; 80048; 80053; 81001; 82803; 82947; 83605; 83735; 85025; 87086; 93005; 93010; 96361; 96372; 96374; 99285-25; A9270; G0378; J1650; J7030; P9612

== ENCOUNTER 2023-12-12 08:09 | Emergency (ER) | payer MEDICARE, OTHER ==
[~2023-12-12] VITALS: Ht 167.6 cm; Wt 99.8 kg
[~2023-12-12 08:09] MED LIST changes: +Acetaminophen650 M1 PO; +FISH OIL 1,2001 EAC7 PO; +GLIP5 PO; +GLIPIZIDE-METF1 EAC1 PO; +ISOSORBIDE MONO30 MG PO; +KLOR-CON 1010 ME9 PO; +LORA10ER PO; +RYBELSUS7 MG PO; +Ventolin/Prove6.7 GM INH
[2023-12-12] MEDS ORDERED: LOSARTAN POTASS25 M2 PO (08:25)
[2023-12-12 08:45] LABS: BASOPHILS ABSOLUTE AUTO 0.06 K/mm3 (0.00-0.23); BASOPHILS PERCENT AUTO 0 % (0-2); EOSINOPHILS ABSOLUTE AUTO 0.18 K/mm3 (0.00-0.68); EOSINOPHILS PERCENT AUTO 1 % (0-6); Hematocrit 45.1 % (33.0-51.0); IMMATURE GRAN ABSOLUTE AUTO 0.07 K/mm3 (0.00-0.10); IMMATURE GRAN PERCENT AUTO 1 % (0-1); LYMPHOCYTES ABSOLUTE AUTO 1.29 K/mm3 (0.84-5.20); LYMPHOCYTES PERCENT AUTO 10 % (21-46); MONOCYTES ABSOLUTE AUTO 0.48 K/mm3 (0.16-1.47); MONOCYTES PERCENT AUTO 4 % (4-13); Mean Corpuscular HGB 29.8 pg (26.0-34.0); Mean Corpuscular HGB Conc 33.3 g/dL (31.5-36.5); Mean Corpuscular Volume 90 fL (80-100); Mean Platelet Volume 9.6 fL (9.1-12.4); NEUTROPHILS ABSOLUTE AUTO 11.56 K/mm3 (1.96-9.15); NEUTROPHILS PERCENT AUTO 85 % (41-73); Platelet Count 367 K/mm3 (150-400); RDW Standard Deviation 46.1 fL (35.1-46.3); Red Blood Cell Count 5.03 M/mm3 (3.80-5.20); White Blood Cell Count 13.64 K/mm3 (4.00-11.30)
[2023-12-12 08:58] LABS: Albumin, Blood 3.5 g/dL (3.4-5.0); Albumin/Globulin Ratio 0.8 (0.8-1.8); Bilirubin, Total 0.5 mg/dL (0.1-1.0); Bun/Creatinine Ratio 27.1 (12.0-20.0); Calcium, Blood 9.5 mg/dL (8.5-10.1); Creatinine, Blood 0.48 mg/dL (0.40-1.00); Globulin, Blood 4.4 g/dL (2.2-4.0); Potassium, Blood 4.1 mmol/L (3.5-5.5); Total Protein, Blood 7.9 g/dL (6.4-8.2)
[2023-12-12] MEDS ORDERED: Ketorolac Tromethamine 30mg Vial IV ONE (09:05)
[2023-12-12] MEDS ORDERED: NS 1,000 ML IV SCH (09:10)
[2023-12-12] MEDS ORDERED: Lactulose 200 GM/300 ML Enema 300ML BTL PR ONE (10:45)
[2023-12-12 10:51] LABS: Source, Urine Foley catheter
[2023-12-12 10:57] LABS: Bilirubin, Urine Neg (Neg); Blood, Urine 3+ (Neg); Glucose Qualitative, Urine Neg (Neg); Ketones, Urine Neg (Neg); Leukocyte Esterase, Urine 3+ (Neg); Nitrite, Urine Neg (Neg); Protein, Urine 1+ (Neg); Specific Gravity, Urine 1.015 (1.003-1.022); Urobilinogen, Urine 1+ (Normal); pH, Urine 6.5 (5.0-8.0)
[2023-12-12 11:15] LABS: Appearance, Urine Hazy (Clear); Bacteria Many /hpf; Color, Urine Yellow (P-Yellow); Squamous Epithelial Cells Not Seen /hpf (Few); White Blood Cells, Urine 25-50 /hpf (0-5)
[2023-12-12] MEDS ORDERED: Ondansetron HCl 2 MG / ML 2ML Vial IV ONE (11:35)
[2023-12-12] MEDS ORDERED: Cefdinir 300 MG Cap PO ONE (11:35)
[2023-12-12] MEDS ORDERED: Dicyclomine HCl 20 MG Tab PO ONE (11:35)
[2023-12-12] MEDS ORDERED: POWDERLAX238 GM PO (13:03)
[2023-12-12] MEDS ORDERED: CEFD300 PO (13:33)
[2023-12-12 16:26] VITALS: BP 114/58
== END 2023-12-12 17:22 | disposition home or self-care (01) ==
LOC: ER 08:09
PROVIDERS: Student in an Organized Health Care Education/Training Program
DX: R10.84 Generalized abdominal pain (principal); K59.00 Constipation, unspecified; N39.0 Urinary tract infection, site not specified; F17.210 Nicotine dependence, cigarettes, uncomplicated; E11.9 Type 2 diabetes mellitus without complications; I50.9 Heart failure, unspecified; I25.2 Old myocardial infarction; Z86.73 Personal history of transient ischemic attack (TIA), and cerebral infarction without residual deficits; Z79.82 Long term (current) use of aspirin; Z79.02 Long term (current) use of antithrombotics/antiplatelets; Z79.899 Other long term (current) drug therapy; Z88.8 Allergy status to other drugs, medicaments and biological substances
CPT/HCPCS: 74177; 80053; 81001; 83690; 83735; 85025; 87077; 87086; 87186; 96374-59; 96375; 99284-25; A9270; J1885; J2405; J7030; P9612; Q9967

== ENCOUNTER 2024-04-23 14:50 | Emergency (ER) | payer MEDICARE, OTHER ==
[~2024-04-23] VITALS: Ht 162.6 cm; Wt 68.0 kg
[~2024-04-23 14:50] MED LIST changes: +CEFD300 PO; +LOSARTAN POTASS25 M2 PO; +POWDERLAX238 GM PO; -Ventolin/Prove6.7 GM INH
[2024-04-23] MEDS ORDERED: PLAVIX75 MG PO (15:04)
[2024-04-23 15:35] LABS: BASOPHILS ABSOLUTE AUTO 0.07 K/mm3 (0.00-0.23); BASOPHILS PERCENT AUTO 1 % (0-2); EOSINOPHILS ABSOLUTE AUTO 0.28 K/mm3 (0.00-0.68); EOSINOPHILS PERCENT AUTO 5 % (0-6); Hematocrit 45.1 % (33.0-51.0); Hemoglobin 14.8 g/dL (11.5-16.0); IMMATURE GRAN ABSOLUTE AUTO 0.03 K/mm3 (0.00-0.10); IMMATURE GRAN PERCENT AUTO 1 % (0-1); LYMPHOCYTES ABSOLUTE AUTO 1.65 K/mm3 (0.84-5.20); LYMPHOCYTES PERCENT AUTO 31 % (21-46); MONOCYTES ABSOLUTE AUTO 0.21 K/mm3 (0.16-1.47); MONOCYTES PERCENT AUTO 4 % (4-13); Mean Corpuscular HGB 30.1 pg (26.0-34.0); Mean Corpuscular HGB Conc 32.8 g/dL (31.5-36.5); Mean Corpuscular Volume 92 fL (80-100); Mean Platelet Volume 10.5 fL (9.1-12.4); NEUTROPHILS ABSOLUTE AUTO 3.15 K/mm3 (1.96-9.15); NEUTROPHILS PERCENT AUTO 58 % (41-73); Platelet Count 209 K/mm3 (150-400); RDW Coefficient Variation 14.3 % (11.7-14.2); Red Blood Cell Count 4.92 M/mm3 (3.80-5.20); White Blood Cell Count 5.39 K/mm3 (4.00-11.30)
[2024-04-23 15:51] LABS: Albumin, Blood 3.4 g/dL (3.4-5.0); Albumin/Globulin Ratio 0.8 (0.8-1.8); Bilirubin, Total 0.8 mg/dL (0.1-1.0); Bun/Creatinine Ratio 20.3 (12.0-20.0); Creatinine, Blood 0.64 mg/dL (0.40-1.00); Globulin, Blood 4.1 g/dL (2.2-4.0); Potassium, Blood 4.2 mmol/L (3.5-5.5); Total Protein, Blood 7.5 g/dL (6.4-8.2)
[2024-04-23 16:34] LABS: Influenza A, PCR NEGATIVE (NEGATIVE); Influenza B, PCR NEGATIVE (NEGATIVE); Resp Syncytial Virus, PCR NEGATIVE (NEGATIVE); SARS-Cov-2 (COVID-19) PCR, MMC NEGATIVE (NEGATIVE)
[2024-04-23] MEDS ORDERED: Amoxicillin/Clavulanate K 875 MG Tab PO ONE (16:55)
[2024-04-23] MEDS ORDERED: AMOCLA875 PO (17:24)
[2024-04-23 17:41] VITALS: BP 118/87
== END 2024-04-23 18:33 | disposition home or self-care (01) ==
LOC: ER 14:50
PROVIDERS: Emergency Medicine
DX: J69.0 Pneumonitis due to inhalation of food and vomit (principal); E11.9 Type 2 diabetes mellitus without complications; I25.2 Old myocardial infarction; F17.210 Nicotine dependence, cigarettes, uncomplicated; Z86.73 Personal history of transient ischemic attack (TIA), and cerebral infarction without residual deficits; Z79.82 Long term (current) use of aspirin; Z79.02 Long term (current) use of antithrombotics/antiplatelets; Z79.899 Other long term (current) drug therapy
CPT/HCPCS: 0241U; 71045; 80053; 83880; 85025; 93005; 93010; 99285-25; A9270

== ENCOUNTER 2024-04-25 16:14 | Emergency (ER) | payer MEDICARE, OTHER ==
[~2024-04-25] VITALS: Ht 167.6 cm; Wt 77.1 kg
[~2024-04-25 16:14] MED LIST changes: +AMOCLA875 PO; +PLAVIX75 MG PO; +Ventolin/Prove6.7 GM INH
[2024-04-25 18:04] LABS: Albumin, Blood 3.1 g/dL (3.4-5.0); Albumin/Globulin Ratio 0.7 (0.8-1.8); Bilirubin, Total 0.7 mg/dL (0.1-1.0); Bun/Creatinine Ratio 16.9 (12.0-20.0); Calcium, Blood 8.9 mg/dL (8.5-10.1); Creatinine, Blood 0.65 mg/dL (0.40-1.00); Globulin, Blood 4.3 g/dL (2.2-4.0); Potassium, Blood 4.1 mmol/L (3.5-5.5); Total Protein, Blood 7.4 g/dL (6.4-8.2)
[2024-04-25 18:48] LABS: BASOPHILS ABSOLUTE AUTO 0.08 K/mm3 (0.00-0.23); BASOPHILS PERCENT AUTO 2 % (0-2); EOSINOPHILS ABSOLUTE AUTO 0.16 K/mm3 (0.00-0.68); EOSINOPHILS PERCENT AUTO 3 % (0-6); Hematocrit 45.5 % (33.0-51.0); Hemoglobin 14.9 g/dL (11.5-16.0); IMMATURE GRAN ABSOLUTE AUTO 0.01 K/mm3 (0.00-0.10); IMMATURE GRAN PERCENT AUTO 0 % (0-1); LYMPHOCYTES ABSOLUTE AUTO 1.63 K/mm3 (0.84-5.20); LYMPHOCYTES PERCENT AUTO 35 % (21-46); MONOCYTES ABSOLUTE AUTO 0.19 K/mm3 (0.16-1.47); MONOCYTES PERCENT AUTO 4 % (4-13); Mean Corpuscular HGB 29.6 pg (26.0-34.0); Mean Corpuscular HGB Conc 32.7 g/dL (31.5-36.5); Mean Corpuscular Volume 91 fL (80-100); Mean Platelet Volume 10.1 fL (9.1-12.4); NEUTROPHILS ABSOLUTE AUTO 2.57 K/mm3 (1.96-9.15); NEUTROPHILS PERCENT AUTO 56 % (41-73); Platelet Count 221 K/mm3 (150-400); RDW Coefficient Variation 14.3 % (11.7-14.2); RDW Standard Deviation 47.6 fL (35.1-46.3); Red Blood Cell Count 5.03 M/mm3 (3.80-5.20); White Blood Cell Count 4.64 K/mm3 (4.00-11.30)
[2024-04-26] MEDS ORDERED: MIRALAX17 GM PO (00:58)
[2024-04-26 01:07] LABS: Source, Urine Clean Catch
[2024-04-26 01:15] LABS: Bilirubin, Urine Neg (Neg); Blood, Urine Neg (Neg); Glucose Qualitative, Urine Neg (Neg); Ketones, Urine 1+ (Neg); Leukocyte Esterase, Urine Neg (Neg); Nitrite, Urine Neg (Neg); Protein, Urine Neg (Neg); Specific Gravity, Urine 1.015 (1.003-1.022); Urobilinogen, Urine NORM (Normal)
[2024-04-26] MEDS ORDERED: ONDA4 PO (01:20)
[2024-04-26] MEDS ORDERED: DICY20 PO (01:20)
[2024-04-26 01:30] LABS: Appearance, Urine Clear (Clear); Color, Urine Yellow (P-Yellow)
[2024-04-26 02:12] VITALS: BP 138/108
[2024-04-27] MEDS ORDERED: Bentyl20 MG PO (16:51)
== END 2024-04-26 02:13 | disposition home or self-care (01) ==
LOC: ER 16:14
PROVIDERS: Student in an Organized Health Care Education/Training Program
DX: R06.02 Shortness of breath (principal); R10.84 Generalized abdominal pain; E11.9 Type 2 diabetes mellitus without complications; I50.9 Heart failure, unspecified; I25.2 Old myocardial infarction; F17.210 Nicotine dependence, cigarettes, uncomplicated; Z86.73 Personal history of transient ischemic attack (TIA), and cerebral infarction without residual deficits; Z79.01 Long term (current) use of anticoagulants; Z79.82 Long term (current) use of aspirin; Z79.899 Other long term (current) drug therapy
CPT/HCPCS: 36415; 70450; 71046; 74176; 80053; 81003; 83880; 84484; 85025; 85379; 93005; 93010; 99285-25

== ENCOUNTER 2024-04-27 16:24 | Inpatient (IN) | payer MEDICARE, OTHER ==
[~2024-04-27] VITALS: Ht 160 cm; Wt 95.2 kg
[~2024-04-27 16:24] MED LIST changes: +DICY20 PO; +MIRALAX17 GM PO; +ONDA4 PO; -Ventolin/Prove6.7 GM INH
[2024-04-27 16:48] LABS: BASOPHILS ABSOLUTE AUTO 0.06 K/mm3 (0.00-0.23); BASOPHILS PERCENT AUTO 1 % (0-2); EOSINOPHILS ABSOLUTE AUTO 0.11 K/mm3 (0.00-0.68); EOSINOPHILS PERCENT AUTO 1 % (0-6); Hematocrit 42.8 % (33.0-51.0); Hemoglobin 14.2 g/dL (11.5-16.0); IMMATURE GRAN ABSOLUTE AUTO 0.03 K/mm3 (0.00-0.10); IMMATURE GRAN PERCENT AUTO 0 % (0-1); LYMPHOCYTES ABSOLUTE AUTO 2.08 K/mm3 (0.84-5.20); LYMPHOCYTES PERCENT AUTO 26 % (21-46); MONOCYTES ABSOLUTE AUTO 0.37 K/mm3 (0.16-1.47); MONOCYTES PERCENT AUTO 5 % (4-13); Mean Corpuscular HGB 29.7 pg (26.0-34.0); Mean Corpuscular HGB Conc 33.2 g/dL (31.5-36.5); Mean Corpuscular Volume 90 fL (80-100); Mean Platelet Volume 10.5 fL (9.1-12.4); NEUTROPHILS ABSOLUTE AUTO 5.34 K/mm3 (1.96-9.15); NEUTROPHILS PERCENT AUTO 67 % (41-73); Platelet Count 282 K/mm3 (150-400); RDW Coefficient Variation 14.5 % (11.7-14.2); RDW Standard Deviation 47.6 fL (35.1-46.3); Red Blood Cell Count 4.78 M/mm3 (3.80-5.20); White Blood Cell Count 7.99 K/mm3 (4.00-11.30)
[2024-04-27] MEDS ORDERED: Bentyl20 MG PO (16:51)
[2024-04-27 17:08] LABS: Albumin, Blood 3.1 g/dL (3.4-5.0); Albumin/Globulin Ratio 0.8 (0.8-1.8); Bilirubin, Total 0.8 mg/dL (0.1-1.0); Calcium, Blood 8.9 mg/dL (8.5-10.1); Creatinine, Blood 0.62 mg/dL (0.40-1.00); Globulin, Blood 3.9 g/dL (2.2-4.0)
[2024-04-27] MEDS ORDERED: Ondansetron HCl 2 MG / ML 2ML Vial IV ONE (17:45)
[2024-04-27] MEDS ORDERED: Cefepime HCl 1,000 MG in NS 100 ML IV ONE (17:55)
[2024-04-27] MEDS ORDERED: Acetaminophen 500 MG Tab PO ONE (18:00)
[2024-04-27] MEDS ORDERED: Vancomycin HCL 1,500 MG in NS 250 ML IV ONE (20:15)
[2024-04-27] MEDS ORDERED: NS 1,000 ML IV SCH (20:25)
[2024-04-27] MEDS ORDERED: FLU VACC TS2024-25(6MOS UP)/PF 45 MCG/0.5 ML SYRINGE IM SCH (20:30)
[2024-04-27] MEDS ORDERED: Ipratropium/Albuterol SulF 2.5-0.5MG/3 ML Amp INH PRN (20:30)
[2024-04-27] MEDS ORDERED: Ondansetron HCl 2 MG / ML 2ML Vial IV PRN (20:30)
[2024-04-27] MEDS ORDERED: Enoxaparin 40 MG/0.4 ML SYR SC SCH (21:00)
[2024-04-27] MEDS ORDERED: Ampicillin Sod/Sulbactam Sod 3 GM in NS 100 ML IV SCH (21:00)
[2024-04-27 21:42] LABS: Influenza A, PCR NEGATIVE (NEGATIVE); Influenza B, PCR NEGATIVE (NEGATIVE); Resp Syncytial Virus, PCR NEGATIVE (NEGATIVE); SARS-Cov-2 (COVID-19) PCR, MMC NEGATIVE (NEGATIVE)
[2024-04-27] MEDS ORDERED: NS 1,000 ML IV ONE (22:18)
[2024-04-28 06:18] LABS: Albumin, Blood 2.3 g/dL (3.4-5.0); Albumin/Globulin Ratio 0.7 (0.8-1.8); Bilirubin, Total 0.7 mg/dL (0.1-1.0); Bun/Creatinine Ratio 23.1 (12.0-20.0); Calcium, Blood 7.3 mg/dL (8.5-10.1); Creatinine, Blood 0.43 mg/dL (0.40-1.00); Globulin, Blood 3.2 g/dL (2.2-4.0); Potassium, Blood 4.1 mmol/L (3.5-5.5); Total Protein, Blood 5.5 g/dL (6.4-8.2)
[2024-04-28 07:16] LABS: BASOPHILS ABSOLUTE AUTO 0.06 K/mm3 (0.00-0.23); BASOPHILS PERCENT AUTO 1 % (0-2); EOSINOPHILS ABSOLUTE AUTO 0.05 K/mm3 (0.00-0.68); EOSINOPHILS PERCENT AUTO 1 % (0-6); Hematocrit 43.7 % (33.0-51.0); Hemoglobin 14.2 g/dL (11.5-16.0); IMMATURE GRAN ABSOLUTE AUTO 0.02 K/mm3 (0.00-0.10); IMMATURE GRAN PERCENT AUTO 0 % (0-1); LYMPHOCYTES ABSOLUTE AUTO 1.81 K/mm3 (0.84-5.20); LYMPHOCYTES PERCENT AUTO 28 % (21-46); MONOCYTES ABSOLUTE AUTO 0.41 K/mm3 (0.16-1.47); MONOCYTES PERCENT AUTO 6 % (4-13); Mean Corpuscular HGB 29.8 pg (26.0-34.0); Mean Corpuscular HGB Conc 32.5 g/dL (31.5-36.5); Mean Corpuscular Volume 92 fL (80-100); Mean Platelet Volume 10.2 fL (9.1-12.4); NEUTROPHILS ABSOLUTE AUTO 4.13 K/mm3 (1.96-9.15); NEUTROPHILS PERCENT AUTO 64 % (41-73); Platelet Count 216 K/mm3 (150-400); RDW Coefficient Variation 14.5 % (11.7-14.2); RDW Standard Deviation 49.2 fL (35.1-46.3); Red Blood Cell Count 4.76 M/mm3 (3.80-5.20); White Blood Cell Count 6.48 K/mm3 (4.00-11.30)
[2024-04-28 10:50] VITALS: BP 128/95
--- NOTE | 2024-04-28 11:06 | NUR ---
ASSUMED CARE: PT ARRIVED FROM ED ON 2L O2. SPOT CHECK SHOWED 95% ON RA. ON RA NOW. TELE PLACED AND SINUS CHARLEY AT 55. CHANGED ATTENDS DUE TO INCONTINENCE, NOTED WOUND TO COCCYX AND LEFT HEEL. PICTURES IN CHART. CALL LIGHT IN REACH, AWAITING RETURN CALL FROM HOSPITALIST FOR FURTHER ORDERS.
--- NOTE | 2024-04-28 11:34 | NUR ---
SPOKE WITH DR ALDRICH IN REGARDS TO PT'S CODE STATUS. ALICE SAYS DNR. ALSO MADE HER AWARE THAT PT IS NPO AND NO SPEECH THERAPY AVAILABILITY TODAY. DR HERMAN PLACE NEW ORDERS.
[2024-04-28] MEDS ORDERED: NS 1,000 ML IV SCH ×2 (11:40→15:50)
[2024-04-28 15:30] VITALS: BP 130/86
[2024-04-28] MEDS ORDERED: Carvedilol 25 MG Tab PO SCH (17:00)
--- NOTE | 2024-04-28 18:43 | NUR ---
ASSUMED CARE PT 1600. SHE PLEASANT COOP LEFT FLACID. NO C/O PAIN FOR ME. IV PULLED BY PT THIS DEBRA. NEW POWERGLIDE PLACED BY JAY. ABX RESUMED. IN TO VISIT THIS DEBRA. NO OTHER CONCERNS NOTED. BED IN LOW POSITION, CALL LITE IN REACH, CALLS APPROP
[2024-04-28 20:02] VITALS: BP 98/80
[2024-04-28] MEDS ORDERED: Pramipexole DI-HCL 0.25 MG Tab PO SCH (21:00)
[2024-04-28] MEDS ORDERED: Atorvastatin 40 MG Tab PO SCH (21:00)
[2024-04-28] MEDS ORDERED: Pregabalin 75 MG Cap PO SCH (21:00)
[2024-04-29 03:37] VITALS: BP 104/72
[2024-04-29 05:22] LABS: BASOPHILS ABSOLUTE AUTO 0.05 K/mm3 (0.00-0.23); BASOPHILS PERCENT AUTO 1 % (0-2); EOSINOPHILS ABSOLUTE AUTO 0.11 K/mm3 (0.00-0.68); EOSINOPHILS PERCENT AUTO 2 % (0-6); Hematocrit 35.5 % (33.0-51.0); Hemoglobin 11.3 g/dL (11.5-16.0); IMMATURE GRAN ABSOLUTE AUTO 0.03 K/mm3 (0.00-0.10); IMMATURE GRAN PERCENT AUTO 1 % (0-1); LYMPHOCYTES ABSOLUTE AUTO 1.44 K/mm3 (0.84-5.20); LYMPHOCYTES PERCENT AUTO 23 % (21-46); MONOCYTES ABSOLUTE AUTO 0.32 K/mm3 (0.16-1.47); MONOCYTES PERCENT AUTO 5 % (4-13); Mean Corpuscular HGB 29.7 pg (26.0-34.0); Mean Corpuscular HGB Conc 31.8 g/dL (31.5-36.5); Mean Corpuscular Volume 93 fL (80-100); Mean Platelet Volume 10.9 fL (9.1-12.4); NEUTROPHILS ABSOLUTE AUTO 4.23 K/mm3 (1.96-9.15); NEUTROPHILS PERCENT AUTO 68 % (41-73); Platelet Count 184 K/mm3 (150-400); RDW Coefficient Variation 14.5 % (11.7-14.2); RDW Standard Deviation 49.8 fL (35.1-46.3); Red Blood Cell Count 3.81 M/mm3 (3.80-5.20); White Blood Cell Count 6.18 K/mm3 (4.00-11.30)
[2024-04-29 05:56] LABS: Albumin, Blood 2.5 g/dL (3.4-5.0); Albumin/Globulin Ratio 0.8 (0.8-1.8); Bilirubin, Total 0.7 mg/dL (0.1-1.0); Bun/Creatinine Ratio 17.5 (12.0-20.0); Calcium, Blood 8.7 mg/dL (8.5-10.1); Creatinine, Blood 0.46 mg/dL (0.40-1.00); Globulin, Blood 3.1 g/dL (2.2-4.0); Potassium, Blood 3.6 mmol/L (3.5-5.5); Total Protein, Blood 5.6 g/dL (6.4-8.2)
[2024-04-29 07:23] VITALS: BP 92/61
[2024-04-29] MEDS ORDERED: DULoxetine HCL 30 MG Cap DR PO SCH (09:00)
[2024-04-29] MEDS ORDERED: Losartan Potassium 25 MG Tab PO SCH (09:00)
[2024-04-29] MEDS ORDERED: AmLODIPine Besylate 5 MG Tab PO SCH (09:00)
[2024-04-29] MEDS ORDERED: Aspirin 81 MG Chew PO SCH (09:00)
[2024-04-29] MEDS ORDERED: Polyethylene Glycol 3350 17 gm PO PRN (09:00)
[2024-04-29] MEDS ORDERED: Divalproex Sod125 M1 PO (15:16)
[2024-04-29 16:08] VITALS: BP 109/66
[2024-04-29] MEDS ORDERED: Acetaminophen 325 MG TABLET PO PRN (17:35)
[2024-04-29 19:30] VITALS: BP 98/67
[2024-04-29] MEDS ORDERED: Divalproex Sodium 125 MG CAP PO SCH (21:00)
[2024-04-30 05:23] VITALS: BP 105/50
[2024-04-30 06:34] LABS: BASOPHILS ABSOLUTE AUTO 0.05 K/mm3 (0.00-0.23); BASOPHILS PERCENT AUTO 1 % (0-2); EOSINOPHILS ABSOLUTE AUTO 0.14 K/mm3 (0.00-0.68); EOSINOPHILS PERCENT AUTO 3 % (0-6); Hematocrit 34.5 % (33.0-51.0); Hemoglobin 11.2 g/dL (11.5-16.0); IMMATURE GRAN ABSOLUTE AUTO 0.03 K/mm3 (0.00-0.10); IMMATURE GRAN PERCENT AUTO 1 % (0-1); LYMPHOCYTES ABSOLUTE AUTO 1.76 K/mm3 (0.84-5.20); LYMPHOCYTES PERCENT AUTO 39 % (21-46); MONOCYTES ABSOLUTE AUTO 0.24 K/mm3 (0.16-1.47); MONOCYTES PERCENT AUTO 5 % (4-13); Mean Corpuscular HGB 29.7 pg (26.0-34.0); Mean Corpuscular HGB Conc 32.5 g/dL (31.5-36.5); Mean Corpuscular Volume 92 fL (80-100); Mean Platelet Volume 10.2 fL (9.1-12.4); NEUTROPHILS ABSOLUTE AUTO 2.26 K/mm3 (1.96-9.15); NEUTROPHILS PERCENT AUTO 50 % (41-73); Platelet Count 187 K/mm3 (150-400); RDW Coefficient Variation 14.6 % (11.7-14.2); RDW Standard Deviation 49.4 fL (35.1-46.3); Red Blood Cell Count 3.77 M/mm3 (3.80-5.20); White Blood Cell Count 4.48 K/mm3 (4.00-11.30)
[2024-04-30] MEDS ORDERED: Lactated Ringer's 1,000 ML IV SCH (07:00)
[2024-04-30 07:03] LABS: Albumin, Blood 2.3 g/dL (3.4-5.0); Albumin/Globulin Ratio 0.7 (0.8-1.8); Bilirubin, Total 0.5 mg/dL (0.1-1.0); Bun/Creatinine Ratio 12.1 (12.0-20.0); Calcium, Blood 7.8 mg/dL (8.5-10.1); Creatinine, Blood 0.41 mg/dL (0.40-1.00); Globulin, Blood 3.2 g/dL (2.2-4.0); Total Protein, Blood 5.5 g/dL (6.4-8.2)
[2024-04-30 07:20] VITALS: BP 141/75
[2024-04-30] MEDS ORDERED: Potassium Chl 20MEQ/Water100ML 100 ML IV SCH (08:15)
[2024-04-30 15:10] VITALS: BP 115/59
--- NOTE | 2024-04-30 17:58 | NUR ---
PATIENT A/O X 1. PATIENT HAS BEEN ASLEEP OFF AND ON MOST OF THE DAY. PATIENT DOES AROUSE WHEN NAME CALLED. PATIENT HAS A PALLATIVE CONSULT IN HOWEVER WILL DISHCARGE HOME WITH RESUMPTION ORDER FOR HOME HEALTH. PATIENT HAS A CAREGIVER WITH HER AT HOME AND NURSE FUNERAL DIRECTOR WORKING ON GETTING A DAYDAY LIFT FOR HOME. PATIENT APPETITE HAS BEEN POOR TODAY HOWEVER DID DRINK A ENSURE SHAKE WITH ICE CREAM FOR LUNCH. PATIETN POTASSIUM WAS 3.0 AND RECIEVED POTASSIUM INFUSIONS TODAY. PATIENT DID HAVE A BM ON 04/29/24. PATIENT CONTINUES ON SOFT FOODS. PATIENT ON TELE WITH RATE AT 55/SINUS CHARLEY. PATIENT HAS POWERGLIDE IN RIGHT UPPER ARM WHICH IS INTACT WITH NO S/S OF REDDNESS OR INFECTION. FAMILY IN ROOM AT BEDSIDE.
[2024-04-30 19:29] VITALS: BP 116/76
[2024-05-01] MEDS ORDERED: NS 250 ML IV PRN (00:05)
[2024-05-01 04:11] VITALS: BP 119/71
--- NOTE | 2024-05-01 04:56 | NUR ---
NOC SUMMARY- PT REQUIRED O2 VIA NC @ 4LPM THIS AM TO MAINTAIN SPO2 >90%. PT HAS BEEN TURNED Q2. BRIEF CHANGED NEEDED. PT TOLERATES TURNING. PT REMAINS AOX1, FOLLOWS SIMPLE DIRECTIONS. NO OTHER ISSUES NOTED. CALL LIGHT IN REACH AND BED ALARM ON FOR SAFETY.
[2024-05-01 06:42] LABS: BASOPHILS ABSOLUTE AUTO 0.05 K/mm3 (0.00-0.23); BASOPHILS PERCENT AUTO 1 % (0-2); EOSINOPHILS ABSOLUTE AUTO 0.15 K/mm3 (0.00-0.68); EOSINOPHILS PERCENT AUTO 3 % (0-6); Hematocrit 33.1 % (33.0-51.0); Hemoglobin 10.8 g/dL (11.5-16.0); IMMATURE GRAN ABSOLUTE AUTO 0.02 K/mm3 (0.00-0.10); IMMATURE GRAN PERCENT AUTO 0 % (0-1); LYMPHOCYTES ABSOLUTE AUTO 1.62 K/mm3 (0.84-5.20); LYMPHOCYTES PERCENT AUTO 35 % (21-46); MONOCYTES ABSOLUTE AUTO 0.28 K/mm3 (0.16-1.47); MONOCYTES PERCENT AUTO 6 % (4-13); Mean Corpuscular HGB 29.8 pg (26.0-34.0); Mean Corpuscular HGB Conc 32.6 g/dL (31.5-36.5); Mean Corpuscular Volume 91 fL (80-100); Mean Platelet Volume 10.4 fL (9.1-12.4); NEUTROPHILS ABSOLUTE AUTO 2.53 K/mm3 (1.96-9.15); NEUTROPHILS PERCENT AUTO 55 % (41-73); Platelet Count 199 K/mm3 (150-400); RDW Coefficient Variation 14.6 % (11.7-14.2); RDW Standard Deviation 49.1 fL (35.1-46.3); Red Blood Cell Count 3.63 M/mm3 (3.80-5.20); White Blood Cell Count 4.65 K/mm3 (4.00-11.30)
[2024-05-01 06:56] LABS: Albumin, Blood 2.3 g/dL (3.4-5.0); Albumin/Globulin Ratio 0.8 (0.8-1.8); Bilirubin, Total 0.4 mg/dL (0.1-1.0); Calcium, Blood 8.3 mg/dL (8.5-10.1); Creatinine, Blood 0.42 mg/dL (0.40-1.00); Potassium, Blood 3.3 mmol/L (3.5-5.5); Total Protein, Blood 5.3 g/dL (6.4-8.2)
[2024-05-01] MEDS ORDERED: Magnesium Sulf 2 GM/Water 50ML 50 ML IV SCH (07:30)
[2024-05-01] MEDS ORDERED: Potassium Chloride 20 MEQ TabCR PO ONE (07:30)
[2024-05-01 07:57] VITALS: BP 124/77
[2024-05-01] MEDS ORDERED: Potassium Chloride 20 MEQ/15 ML UDC PO ONE (08:00)
[2024-05-01] MEDS ORDERED: CARV25 PO (15:09)
[2024-05-01] MEDS ORDERED: IPRAT-ALBUT 0.5-3 ML INH (15:11)
[2024-05-01 16:04] VITALS: BP 111/86
--- NOTE | 2024-05-01 16:37 | NUR ---
PT RESTING QUIETLY AWAKE AT START OF SHIFT. HX CVA WITH L SIDE DEFICITS. PT NEEDING ASSISTANCE WITH MEALS AND FEEDING. PT IS INCONTINENT OF BOWEL AND BLADDER; ATTENDS IN PLACE. BED BATH AND LINEN CHANGE GIVEN AFTER BREAKFAST. PT IS MEDICALLY STABLE AND ABLE TO D/C TO HOME WITH H/H. FAMILY AND MEDICAL OFFICE ASST NOTIFIED. O2 DELIVERED. TRANSPORT ARRANGED BY REHAB DIRECTOR. HARISH LUTHER TO HOME. PT IS VERY PLEASANT AND GRATEFUL FOR CARE. VERY WEAK AND DECONDITIONED. NO C/O. PT'S ONLY BELONGINGS INCLUDED HER T-SHIRT AND HER DENTURES, WHICH SHE HAS IN HER MOUTH. TX HERE AT THIS TIME.
== END 2024-05-01 17:26 | disposition home health service (06) | DRG 177 ==
LOC: ER 16:24 → MEDS 20:24 → ERHOLD 20:24 → MEDS 04-28 10:33 → ENPENDDIS 05-01 16:31 → MEDS 05-01 17:26
PROVIDERS: Student in an Organized Health Care Education/Training Program; ADMIT Internal Medicine
DX: J69.0 Pneumonitis due to inhalation of food and vomit (principal); J96.01 Acute respiratory failure with hypoxia; I69.354 Hemiplegia and hemiparesis following cerebral infarction affecting left non-dominant side; I50.42 Chronic combined systolic (congestive) and diastolic (congestive) heart failure; Z66 Do not resuscitate; E11.9 Type 2 diabetes mellitus without complications; I11.0 Hypertensive heart disease with heart failure; F32.A Depression, unspecified; H54.7 Unspecified visual loss; F01.50 Vascular dementia, unspecified severity, without behavioral disturbance, psychotic disturbance, mood disturbance, and anxiety; I25.10 Atherosclerotic heart disease of native coronary artery without angina pectoris; J44.9 Chronic obstructive pulmonary disease, unspecified; G25.81 Restless legs syndrome; G40.909 Epilepsy, unspecified, not intractable, without status epilepticus; E87.6 Hypokalemia; F17.210 Nicotine dependence, cigarettes, uncomplicated; I69.391 Dysphagia following cerebral infarction; R13.10 Dysphagia, unspecified; I69.392 Facial weakness following cerebral infarction; I25.2 Old myocardial infarction; Z79.02 Long term (current) use of antithrombotics/antiplatelets; Z79.899 Other long term (current) drug therapy; Z79.82 Long term (current) use of aspirin; Z95.5 Presence of coronary angioplasty implant and graft; Z98.890 Other specified postprocedural states
CPT/HCPCS: 0241U; 36415; 70450; 71045; 71046; 74176; 80053; 81003; 83735; 83880; 84484; 85025; 85379; 92610; 93005; 93010; 94640; 94664; 94760; 94761; 96365; 96375; 97161; 97166; 97535; 99285-25; A9270; C1751; J0295; J0692; J1650; J2405; J3370; J3475; J3480; J7030; J7050